=== PATIENT | male | born 1960 | race Two or more races ===

== ENCOUNTER 2025-02-25 10:44 | Inpatient (IN) | payer MEDICARE, MEDICAID ==
[~2025-02-25] VITALS: Ht 162.6 cm; Wt 81.3 kg
--- NOTE | 2025-02-25 11:14 | ED.PDOC ---
GI ASSESSMENT HPI Comments 64 y/o M, presents to the ED with a chief complaint of diarrhea. Patient states, he has been experiencing symptoms of diarrhea, nausea, vomiting, and headaches x2-3days. Patient denies changes in diet, fatigue, weakness, hematemesis, or hematochezia. No other associated symptoms, modifiers, recent injuries or sick contacts are present at this time. Chief Complaint: Diarrhea Time Seen by MD: 11:15 Reviewed Notes: Nurses Notes, Medications, Allergies Information Source: Patient Mode of Arrival: Wheelchair Timing: Days Duration: Since onset Prehospital treatment: None Vomitus: Watery Stool: Watery Severity: Moderate Recent: None Recent Hx of: None Pain Location: None Modifying Factors: Nothing Associated sign and symptoms: Nausea, Vomiting, Diarrhea, Fever Past Medical History PAST MEDICAL HISTORY: Denies Surgical History: Denies all surgeries Family History Family History: Reviewed,noncontributory to illness Social History Smoker: Non-Smoker Alcohol: Denies ETOH Use Drugs: Denies Drug Use Lives In: Home Constitutional: reports: fever; denies: chills, diaphoresis, fatigue, malaise, sweats, weakness, others EENTM: denies: blurred vision, double vision, ear bleeding, ear discharge, ear drainage, ear pain, ear ringing, eye pain, eye redness, hearing loss, mouth pain, mouth swelling, nasal discharge, nose bleeding, nose congestion, nose pain, photophobia, tearing, throat pain, throat swelling, voice changes, others Respiratory: denies: cough, hemoptysis, orthopnea, SOB at rest, shortness of breath, SOB with excertion, stridor, wheezing, others Cardiovascular: denies: chest pain, dizzy spells, diaphoresis, Dyspnea on exertion, edema, irregular heart beat, left arm pain, lightheadedness, palpitations, PND, syncope, others Gastrointestinal: reports: diarrhea, nausea, vomiting; denies: abdomen distended, abdominal pain, blood streaked bowels, constipated, dysphagia, difficulty swallowing, hematemesis, melena, poor appetite, poor fluid intake, rectal bleeding, rectal pain, others Genitourinary: denies: burning, dysuria, flank pain, frequency, hematuria, incontinence, penile discharge, penile sore, pain, testicle pain, testicle swelling, urgency, others Neurological: reports: headache; denies: dizziness, fainting, left sided numbness, left sided weakness, numbness, paresthesia, pre-existing deficit, right sided numbness, right sided weakness, seizure, speech problems, tingling, tremors, weakness, others Musculoskeletal: denies: back pain, gout, joint pain, joint swelling, muscle pain, muscle stiffness, neck pain, others Integumetry: denies: bruises, change in color, change in hair/nails, dryness, laceration, lesions, lumps, rash, wounds, others Allergic/Immunocompromised: denies: Difficulty Healing, Frequent Infections, Hives, Itching, others Hematologic/Lymphatic: denies: anemia, blood clots, easy bleeding, easy bruising, swollen glands, others Endocrine: denies: excessive hunger, excessive sweating, excessive thirst, excessive urination, flushing, intolerance to cold, intolerance to heat, unexplained weight gain, unexplained weight loss, others Psychiatric: denies: anxiety, bipolar disorder, depression, hopeless, panic disorder, schizophrenia, sleepless, suicidal, others All Other Systems: Reviewed and Negative Physical Exam General Appearance: Moderate Distress HEENT: Normal ENT Inspection, Pharynx Normal, TMs Normal Neck: Full Range of Motion, Non-Tender, Normal, Normal Inspection Respiratory: Chest Non-Tender, Lungs Clear, No Accessory Muscle Use, No Resp iratory Distress, Normal Breath Sounds Cardiovascular: No Edema, No JVD, No Murmur, No Gallop, Normal Peripheral Pulses, Regular Rate/Rhythm Breast Exam: Deferred Gastrointestinal: No Organomegaly, Non Tender, No Pulsatile Mass, Normal Bowel Sounds, Soft Genitalia: Deferred Pelvic: Deferred Rectal: Deferred Extremities: No calf tenderness, Normal capillary refill, Normal inspection, Normal range of motion, Non-tender, No pedal edema Musculoskeletal : Apperance: Normal Neurologic: Alert, software application tester II-XII nml as Tested, No Motor Deficits, Normal Affect, Normal Mood, No Sensory Deficits Cerebellar Function: Normal Reflexes: NOT DONE Skin: Dry, Normal Color, Warm Peripheral Pulses: 3+ Radial (R), 3+ Radial (L) Lymphatic: No Adenopathy Was a procedure done? Was a procedure done?: No GI differential Dx Differential Diagnosis: Constipation, Diverticular disease, Esophagitis, Gastritis/PUD, Gastroenteritis, Electrolyte Imbalance, Food Poisoning, Bacterial, Viral X-Ray, Labs, Meds, VS Vital Signs Date Time Temp Pulse Resp B/P (MAP) Pulse Ox O2 Delivery O2 Flow Rate FiO2 02/25/25 13:09 98.5 88 16 127/64 (85) 100 98.5 02/25/25 10:46 99.0 98 16 116/60 96 99.0 Lab Test 02/25/25 13:32 02/25/25 12:03 Range/Units SARS-CoV-2 Antigen (Rapid) Negative NEGATIVE White Blood Count 2.0 L 4.4-10.8 10^3/uL Red Blood Count 4.44 L 4.5-5.90 10^6/uL Hemoglobin 15.5 13.5-17.5 g/dL Hematocrit 45.1 41.0-53.0 % Mean Corpuscular Volume 101.6 H 80.0-100.0 fL Mean Corpuscular Hemoglobin 35.0 H 28.0-32.0 pg Mean Corpuscular Hemoglobin Concent 34.4 32.0-36.0 g/dL Red Cell Distribution Width 15.1 H 11.8-14.3 % Platelet Count 149 140-450 10^3/uL Mean Platelet Volume 8.1 6.9-10.8 fL Neutrophils (%) (Auto) 81.1 H 37.0-80.0 % Lymphocytes (%) (Auto) 9.0 L 10.0-50.0 % Monocytes (%) (Auto) 9.8 0.0-12.0 % Eosinophils (%) (Auto) 0.0 0.0-7.0 % Basophils (%) (Auto) 0.1 0.0-2.0 % Neutrophils # (Auto) 1.6 1.6-8.6 10 ^3/uL Lymphocytes # (Auto) 0.2 L 0.4-5.4 10 ^3/uL Monocytes # (Auto) 0.2 0-1.3 10 ^3/uL Eosinophils # (Auto) 0 0-0.8 10 ^3/uL Basophils # (Auto) 0 0-0.2 10 ^3/uL Nucleated Red Blood Cells 0.4 % Sodium Level 140 136-145 mmol/L Potassium Level 3.9 3.5-5.1 mmol/L Chloride Level 104 98-107 mmol/L Carbon Dioxide Level 24 20-31 mmol/L Anion Gap 12 5-15 Blood Urea Nitrogen 19 9-23 mg/dL Creatinine 1.15 0.700-1.30 mg/dL Glomerular Filtration Rate Calc 71 >90 mL/min BUN/Creatinine Ratio 16.5 10.0-20.0 Serum Glucose 142 H 74-106 mg/dL Calcium Level 9.0 8.7-10.4 mg/dL Troponin I High Sensitivity 5 </=54 ng/L Current Medications Medications (Trade) Dose Ordered Sig/Kaylah Route Start Time Stop Time Status Last Admin Sodium Chloride 1,000 ml @ 1,000 mls/hr Q1H ONCE IV 02/25/25 12:00 02/25/25 12:59 DC 02/25/25 12:20 Patient alert. Generalized weakness. He has been having nausea vomiting. Vitals stable. Unknown his past medical history. Being followed at [facility]. Establish intravenous access. Was given fluids. Continue to monitoring. [place] [address] Ph: [phone] DIAGNOSTIC IMAGING Diagnostic Imaging Report : [id number] Signed PATIENT: INDER PIZARRO RACCT: [id number] UNIT: [id number] : 1960 LOC: ER ROOM / BED: / AGE / SEX: 64 / M ADM STATUS: REG ER SERVICE 47 ORDERING PHYSICIAN: IKER HU MD PROCEDURE(s): CXRP - CHEST PORTABLE REASON: sob ORDER NUMBER(s): [id number], ACCESSION NUMBER(s): [id number] AP portable chest CLINICAL INDICATION: sob FINDINGS: Heart size is normal. Aorta slightly tortuous. No infiltrates or effusions. No bony thoracic abnormalities. IMPRESSION: 1. No acute cardiopulmonary pathology ATED BY: TOMMY DHALIWAL MD DICTATED DATE/TIME: 02/25/251215 SIGNED BY: TOMMY DHALIWAL MD SIGNED DATE/TIME: 02/25/251215 CC: Time of 1ST Reevaluation: 11:45 Reevaluation 1ST: Unchanged Patient Education/Counseling: Diagnosis, Treatment Family Education/Counseling: No Family Present SEPSIS Sepsis Screen Date sepsis recognized/suspect: Feb 25, 2025 Time Sepsis recognized/suspect: 1046 Recent Procedure: No On Antibiotic Therapy: No Respiratory Rate >20: No Heart Rate >90: Yes Temp<36 C (96.8 F) or >38.3 C: No SBP <90 or MAP <65 mmHG: No New Acute Mental Status Change: No Is the patient on CPAP, BIPAP,: No Physician Orders Chest Portable (02/25/25 11:48) Urinalysis (02/25/25 11:48) Vital Signs Date Time Temp Pulse Resp B/P (MAP) Pulse Ox O2 Delivery O2 Flow Rate FiO2 02/25/25 13:09 98.5 88 16 127/64 (85) 100 98.5 02/25/25 10:46 99.0 98 16 116/60 96 99.0 Laboratory Tests Test 02/25/25 12:03 White Blood Count 2.0 10^3/uL (4.4-10.8) L Medications Medications Dose Ordered Sig/Kaylah Route Start Time Stop Time Status Last Admin Dose Admin Sodium Chloride 1,000 ml @ 1,000 mls/hr Q1H ONCE IV 02/25/25 12:00 02/25/25 12:59 DC 02/25/25 12:20 Departure 1 Departure Time of Disposition: 12:24 Impression: Primary Impression: Gastroenteritis Disposition: ADMITTED INPATIENT Admit to: Med Surg Condition: Guarded Critical Care Note Critical Care Time?: No Stability Stability form required: No Heart Score Heart Score: Heart Score Response (Comments) Value History N/A 0 EKG N/A 0 Age N/A 0 Risk Factors N/A 0 Troponin N/A 0 Total 0 I personally scribed for IKER HU MD ([email or web address]) on 02/25/25 at 11:14. Electronically submitted by Merlyn Carbajal ([email or web address]). I personally scribed for IKER HU MD ([email or web address]) on 02/25/25 at 13:34. Electronically submitted by Merlyn Carbajal ([email or web address]). IKER HU MD Feb 25, 2025 11:14
--- NOTE | 2025-02-25 12:18 | DVH ---
AP portable chest CLINICAL INDICATION: sob FINDINGS: Heart size is normal. Aorta slightly tortuous. No infiltrates or effusions. No bony thoraci c abnormalities. IMPRESSION: 1. No acute cardiopulmonary pathology
[2025-02-25] MEDS: SODIUM CHLORIDE 0.9% 1,000 ML IV ONE ×3 (12:20→23:35)
[2025-02-25 12:24] LABS: Hematocrit 45.1 % (41.0-53.0); Hemoglobin 15.5 g/dL (13.5-17.5); Mean Corpuscular Hemoglobin 35.0 pg (28.0-32.0); Mean Corpuscular Volume 101.6 fL (80.0-100.0); Nucleated Red Blood Cells % 0.4 %
[2025-02-25 12:35] LABS: Chloride 104 mmol/L (98-107); Potassium 3.9 mmol/L (3.5-5.1); Sodium 140 mmol/L (136-145)
[2025-02-25 12:36] LABS: Anion Gap 12 (5-15); Carbon Dioxide 24 mmol/L (20-31)
[2025-02-25 12:37] LABS: Calcium 9.0 mg/dL (8.7-10.4)
[2025-02-25 12:42] LABS: BUN/Creatinine Ratio 16.5 (10.0-20.0); Blood Urea Nitrogen 19 mg/dL (9-23); Glucose 142 mg/dL (74-106)
[2025-02-25 14:09] LABS: COVID19 ANTIGEN SOFIA FIA NEGATIVE (NEGATIVE)
[2025-02-25 17:18] LABS: Urine Amorphous Crystal MOD /hpf (None Seen); Urine Protein, UAD 1+ (Negative)
--- NOTE | 2025-02-25 17:19 | DVH ---
EXAM: CT CT AB PEL WO CON-NO ORAL OR IV INDICATION: colitis TECHNIQUE: Volumetric multidetector CT images of the abdomen and pelvis were obtained without contras t. All CT scans at this facility use dose modulation, iterative reconstruction, and/or weight based d osing when appropriate to reduce radiation dose to as low as reasonably achievable. COMPARISON: None FINDINGS: [LOWER CHEST]: The partially visualized lung bases are clear without a pleural effusion. The cardiac size is normal without pericardial effusion. [LIVER]: Normal hepatic size without suspicious focal lesion. [GALLBLADDER AND BILIARY TREE]: No cholelithiasis. [SPLEEN]: Unremarkable. [PANCREAS]: Unremarkable. [ADRENAL GLANDS]: Unremarkable [KIDNEYS]: No hydronephrosis. No nephroureterolithiasis. [BLADDER]: Unremarkable for the degree distention. [REPRODUCTIVE ORGANS]: Unremarkable. [BOWEL/MESENTERY]: Air-fluid level of the stomach. Fluid throughout the colon. Correlate for loose s tool. Slight fluid distention of multiple small bowel loops. [ASCITES]: Absent [LYMPHADENOPATHY]: No pathologically enlarged lymph nodes by CT size criteria [VASCULATURE]: No aneurysmal dilatation. [ABDOMINAL WALL]: Trace fat containing right inguinal hernia [MUSCULOSKELETAL]: No acute fracture or aggressive focal osseous lesion. IMPRESSION: 1. Fluid throughout the colon and small bowel. 2. Correlate for diarrhea sequelae of enteric colitis. 3. No CT evidence of bowel obstruction.
[2025-02-25 18:41] LABS: Lactic Acid w/Reflex 2.7 mmol/L (0.4-2.0)
[2025-02-25 22:08] LABS: Alanine Aminotransferase 21.0 U/L (7-40); Albumin 4.2 g/dL (3.2-4.8); Alkaline Phosphatase 59.0 U/L (46-116); Bilirubin, Direct 0.2 mg/dL (<0.3); Total Protein 6.9 g/dL (5.7-8.2)
[2025-02-25 22:09] LABS: Bilirubin, Total 0.5 mg/dL (0.2-1.0)
[2025-02-25 23:14] LABS: Lactic Acid w/Reflex 2.1 mmol/L (0.4-2.0)
[2025-02-25 23:30] VITALS: O2SAT 98
--- NOTE | 2025-02-25 23:57 | DVHHPRES ---
History of Present Illness Resident Creating Document: MALACHI MOTA RESIDENT History of Present Illness History of Present Illness (HPI): Todd Day is a 64-year-old male with a known medical history of hypertension and hepatic hemangioma who presented with complaints of persistent nausea, repeated episodes of vomiting, diarrhea, headache, and generalized weakness that have persisted over the past three days. He reports experiencing . These symptoms are accompanied by fever and shortness of breath. He states he feels too fatigued to even get out of bed. Notably, he began experiencing dizziness yesterday, and there is now evidence of confusion. One week prior to presentation, Mr. Day underwent a colonoscopy in [place]. He denies any blood in his stool or vomit. Past Medical History (PMH): hypertension and hepatic hemangioma Past Surgical History (PSH): Denies past surgical history Family history (FH): Denies any relevant family history EtOH: Denies alcohol use Smoking /Vaping: Patient denies smoking Recreational Drugs: Denies recreational drug use Residence: Lives with daughter Home Medications: Bisoprolol, candesartan Allergies: No known allergies PCP: No PCP. Advised to follow with [facility] as outpatient after sifting operator relevant to admission: Nonrelevant Review of Systems Review of Systems General: Complains of fever, generalized weakness HEENT: Complains of headaches. Cardiovascular: Denies chest pain, palpitations, dyspnea on exertion, orthopnea, or claudication. Respiratory: Complains of shortness of breath Gastrointestinal: Complains of diarrhea, nausea and vomiting Genitourinary: No dysuria, hematuria, discharge, frequency, urgency, nocturia, incontinence, and urinary retention. Endocrine: No heat or cold intolerance, polydipsia, polyuria, and polyphagia. Neurological: No dizziness, extremity weakness and numbness, tremors, gait disturbance, seizures, and memory impairment. Psychiatric: Denies depression, anxiety,or insomnia. Musculoskeletal: Denies neck pain, stiffness and swelling, back pain, muscle weakness, joint pain, stiffness, swelling, or limited range of motion. Skin: No rashes, itching, skin lesion, changes in hair, nail, skin texture and breast. Hematologic/Lymphatic: Denies easy bruising, bleeding tendencies, or lymph node enlargement. Allergies: Coded Allergies: NO KNOWN ALLERGIES (Unverified , 02/26/25) Medications Current Medications Medications Dose Ordered Sig/Kaylah Route Start Time Stop Time Status Last Admin Dose Admin Piperacillin Sod/ Tazobactam Sod 100 ml @ 25 mls/hr Q8HR IV 02/25/25 22:00 UNV Exam Vital Signs Vital Signs Date Time Temp Pulse Resp B/P (MAP) Pulse Ox O2 Delivery O2 Flow Rate FiO2 02/25/25 23:30 98 Room Air* 0 21 02/25/25 23:28 99.0 81 16 123/70 (87) 99.0 Exam General Appearance: Alert, Oriented X3, Cooperative, No acute distress HEENT: Atraumatic, PERRLA, EOMI, Mucous membrane moist/pink Respiratory: Clear to auscultation, Normal air movement Cardiovascular: Regular rate, Normal S1, Normal S2, No murmurs, no chest wall tenderness Abdominal: Normal bowel sounds, Soft, No tenderness, No hepatospenomegaly, No masses Extremities: No clubbing, No cyanosis, No edema, Normal pulses, No tenderness/swelling Skin: No rashes, No breakdown, No significant lesion Neuro: Normal gait, Normal speech, Strength at 5/5 X4 ext, Normal tone, Sensation intact, Cranial nerves 3-12 NL, Reflexes 2+ Psych/Mental Status: Mental status NL, Mood NL Labs/Xrays Labs Test 02/25/25 22:40 02/25/25 19:14 02/25/25 16:48 02/25/25 13:32 Range/Units Lactic Acid Level 2.1 *H 0.4-2.0 mmol/L Total Bilirubin 0.5 0.2-1.0 mg/dL Direct Bilirubin 0.2 <0.3 mg/dL Aspartate Amino Transferase (AST) 16 13-40 U/L Alanine Aminotransferase (ALT) 21 7-40 U/L Alkaline Phosphatase 59 46-116 U/L Total Protein 6.9 5.7-8.2 g/dL Albumin 4.2 3.2-4.8 g/dL Urine Color Light-orange Yellow Urine Clarity Ex.turbid Clear Urine pH 5.5 5.0-9.0 Urine Specific Girard 1.029 1.001-1.035 Urine Protein 1+ H Negative Urine Ketones 1+ H Negative Urine Blood Trace H Negative /uL Urine Nitrite Negative Negative Urine Bilirubin Negative Negative Urine Urobilinogen Normal Negative mg/dL Urine Leukocyte Esterase Negative Negative /uL Urine RBC 6 0 - 3 /hpf Urine Microscopic WBC 0-3 /HPF Urine Squamous Epithelial Cells None seen <5 /hpf Urine Amorphous Crystals Mod None Seen /hpf Urine Bacteria None seen None Seen /hpf Urine Glucose Trace Normal mg/dL SARS-CoV-2 Antigen (Rapid) Negative NEGATIVE Test 02/25/25 12:03 Range/Units White Blood Count 2.0 L 4.4-10.8 10^3/uL Red Blood Count 4.44 L 4.5-5.90 10^6/uL Hemoglobin 15.5 13.5-17.5 g/dL Hematocrit 45.1 41.0-53.0 % Mean Corpuscular Volume 101.6 H 80.0-100.0 fL Mean Corpuscular Hemoglobin 35.0 H 28.0-32.0 pg Mean Corpuscular Hemoglobin Concent 34.4 32.0-36.0 g/dL Red Cell Distribution Width 15.1 H 11.8-14.3 % Platelet Count 149 140-450 10^3/uL Mean Platelet Volume 8.1 6.9-10.8 fL Neutrophils (%) (Auto) 81.1 H 37.0-80.0 % Lymphocytes (%) (Auto) 9.0 L 10.0-50.0 % Monocytes (%) (Auto) 9.8 0.0-12.0 % Eosinophils (%) (Auto) 0.0 0.0-7.0 % Basophils (%) (Auto) 0.1 0.0-2.0 % Neutrophils # (Auto) 1.6 1.6-8.6 10 ^3/uL Lymphocytes # (Auto) 0.2 L 0.4-5.4 10 ^3/uL Monocytes # (Auto) 0.2 0-1.3 10 ^3/uL Eosinophils # (Auto) 0 0-0.8 10 ^3/uL Basophils # (Auto) 0 0-0.2 10 ^3/uL Nucleated Red Blood Cells 0.4 % Sodium Level 140 136-145 mmol/L Potassium Level 3.9 3.5-5.1 mmol/L Chloride Level 104 98-107 mmol/L Carbon Dioxide Level 24 20-31 mmol/L Anion Gap 12 5-15 Blood Urea Nitrogen 19 9-23 mg/dL Creatinine 1.15 0.700-1.30 mg/dL Glomerular Filtration Rate Calc 71 >90 mL/min BUN/Creatinine Ratio 16.5 10.0-20.0 Serum Glucose 142 H 74-106 mg/dL Calcium Level 9.0 8.7-10.4 mg/dL Troponin I High Sensitivity 5 </=54 ng/L SEPSIS Sepsis Screen Date sepsis recognized/suspect: Feb 25, 2025 Time Sepsis recognized/suspect: 1045 Recent Procedure: No On Antibiotic Therapy: No Respiratory Rate >20: No Heart Rate >90: Yes Temp<36 C (96.8 F) or >38.3 C: No SBP <90 or MAP <65 mmHG: No New Acute Mental Status Change: No Is the patient on CPAP, BIPAP,: No Physician Orders Ct Ab Pel Wo Con-No Oral Or Iv (02/25/25 16:16) Blood Culture (02/25/25 16:16) Admit (02/25/25 21:39) Allergies (02/25/25 21:39) Code Status (02/25/25 21:39) Fall Risk Precautions In Place QSHIFT (02/25/25 21:39) Complete Blood Count (02/26/25 04:00) Comprehensive Metabolic Panel (02/26/25 04:00) Condition: Serious (02/25/25 21:39) Stool Bacterial Culture (02/25/25 21:42) Mrsa Screen (02/25/25 21:42) Stool Wbc (02/25/25 21:42) Stool Occult Blood (02/25/25 21:42) Npo Except For Medications (02/25/25 21:42) Piperacillin-Tazo 4.5gm (Zosyn 4.5gm/100 (02/25/25 21:45) Piperacillin-Tazob 3.375gm (Zosyn 3.375g (02/25/25 22:00) Clostridium Difficile Toxin (02/25/25 21:42) Communication Order (02/25/25 23:18) Vital Signs Date Time Temp Pulse Resp B/P (MAP) Pulse Ox O2 Delivery O2 Flow Rate FiO2 02/25/25 23:30 98 Room Air* 0 21 02/25/25 23:28 99.0 81 16 123/70 (87) 94 99.0 02/25/25 20:37 99.5 81 16 120/76 (91) 96 99.5 02/25/25 18:20 101.2 87 16 128/67 (87) 96 101.2 02/25/25 16:01 103.1 97 16 126/71 (89) 96 103.1 Laboratory Tests Test 02/25/25 12:03 02/25/25 17:17 02/25/25 19:14 02/25/25 22:40 White Blood Count 2.0 10^3/uL (4.4-10.8) L Lactic Acid Level 2.7 mmol/L (0.4-2.0) *H 2.2 mmol/L (0.4-2.0) *H 2.1 mmol/L (0.4-2.0) *H Medications Medications Dose Ordered Sig/Kaylah Route Start Time Stop Time Status Last Admin Dose Admin Ceftriaxone Sodium 50 ml @ 100 mls/hr ONCE ONCE IV 02/25/25 16:00 02/25/25 16:29 DC 02/25/25 15:55 100 MLS/HR Metronidazole 100 ml @ 100 mls/hr ONCE ONCE IV 02/25/25 16:30 02/25/25 17:29 DC 02/25/25 16:29 100 MLS/HR Sodium Chloride 1,000 ml @ 1,000 mls/hr Q1H ONCE IV 02/25/25 12:00 02/25/25 12:59 DC 02/25/25 12:20 1,000 MLS/HR Sodium Chloride 1,000 ml @ 1,000 mls/hr Q1H ONCE IV 02/25/25 15:45 02/25/25 16:44 DC 02/25/25 15:55 1,000 MLS/HR Sodium Chloride 1,000 ml @ 1,000 mls/hr Q1H ONCE IV 02/25/25 16:30 02/25/25 17:29 DC 02/25/25 23:35 1,000 MLS/HR Assessment/Plan Assessment/Plan Assessment and plan # Sepsis due to colitis - IV fluids - IV Zosyn - Follow stool WBC, culture, blood - Follow lactic acid levels - NPO - Follow Clostridium difficile test result # Colitis, likely infectious # history of recent colonoscopy - Identified on CT - IV fluids - IV Zosyn plus vanco # Essential hypertension - Continue bisoprolol and candesartan #History of Hepatic hemangioma - Likely resolved, CT shows Normal hepatic size without suspicious focal lesion. - Follow-up with PCP as outpatient after discharge # Grade 1 obesity - Diet and tolerable exercise PUD prophylaxis: not needed DVT prophylaxis: brisk movement. Barriers to discharge: Medical diagnosis and management in progress. Patient lives with family. Independent for ADL. PCP: None Specialist Relevant To Admission: Nonrelevant Case discussed with Dr. Rangel. Code Status: Full Code. Complex patient care discussion needed. Spend 37 minutes for bedside assessment, case discussion and management. Plan discussed with: Patient, Daughter My Orders Orders - MALACHI MOTA RESIDENT Procedure Category Date Status Time Admit ADMIT 02/25/25 Transmitted 21:39 Allergies YENI 02/25/25 In Process 21:39 Code Status CODE 02/25/25 Transmitted 21:39 Fall Risk Precautions YENI 02/25/[address] 21:39 Complete Blood Count LAB 02/26/25 Verified 04:00 Comprehensive LAB 02/26/25 Verified Metabolic Panel 04:00 Condition: Serious YENI 02/25/25 In Process 21:39 Stool Bacterial LEIDY 02/25/25 Logged Culture 21:42 Mrsa Screen LEIDY 02/25/25 Logged 21:42 Stool Wbc LAB 02/25/25 Logged 21:42 Stool Occult Blood LAB 02/25/25 Logged 21:42 Npo Except For YENI 02/25/25 In Process Medications 21:42 Piperacillin-Tazo PHA 02/25/25 Logged 4.5gm (Zosyn 4.5gm/100 21:45 Piperacillin-Tazob PHA 02/25/25 Logged 3.375gm (Zosyn 3.375g 22:00 Clostridium Difficile LEIDY 02/25/25 Logged Toxin 21:42 Communication Order ORDERS 02/25/25 Transmitted 23:18 Date of Service: Feb 25, 2025 Billing Provider: NAZ RANGEL MD Common Visit Codes: [id number] INP/OBS CARE (HIGH) Secondary Visit Codes: [id number] CARE PLAN 30 MINUTES MALACHI MOTA RESIDENT Feb 25, 2025 23:57 AISSATOU HERR RESIDENT Feb 26, 2025 04:09
[2025-02-26] MEDS: SODIUM CHLORIDE 0.9% 1,000 ML IV ONE (00:30)
[2025-02-26] MEDS ORDERED: VANCOMYCIN PER PHARMACY 0 MG IV SCH (04:15)
[2025-02-26] MEDS: PIPERACILLIN-TAZO 4.5GM 100 ML IV ONE ×2 (05:49→06:27)
[2025-02-26] MEDS: SODIUM CHLORIDE 0.9% 500 ML IV ONE (05:49)
[2025-02-26 06:57] LABS: Hemoglobin 14.3 g/dL (13.5-17.5)
[2025-02-26 06:59] LABS: Hematocrit 41.6 % (41.0-53.0); Mean Corpuscular Hemoglobin 34.6 pg (28.0-32.0); Mean Corpuscular Volume 100.6 fL (80.0-100.0)
[2025-02-26 07:17] LABS: Alanine Aminotransferase 21 U/L (7-40); Albumin 4.1 g/dL (3.2-4.8); Alkaline Phosphatase 54 U/L (46-116); Anion Gap 12 (5-15); BUN/Creatinine Ratio 17.4 (10.0-20.0); Blood Urea Nitrogen 16 mg/dL (9-23); Carbon Dioxide 22 mmol/L (20-31); Sodium 141 mmol/L (136-145); Total Protein 6.7 g/dL (5.7-8.2)
[2025-02-26 07:18] LABS: Bilirubin, Total 0.5 mg/dL (0.2-1.0)
[2025-02-26 07:21] LABS: Calcium 8.4 mg/dL (8.7-10.4); Chloride 107 mmol/L (98-107); Glucose 127 mg/dL (74-106); Potassium 3.1 mmol/L (3.5-5.1)
[2025-02-26] MEDS: VANCOMYCIN 1GM/250ML KIT 250 ML IV SCH ×2 (09:00)
[2025-02-26] MEDS: SODIUM CHLORIDE 0.9% 1,000 ML IV SCH (09:03)
[2025-02-26] MEDS: POTASSIUM CHL 20MEQ/100ML 100 ML IV ONE ×2 (09:07→10:57)
[2025-02-26] MEDS: VANCOMYCIN 1GM/250ML KIT 500 ML IV ONE (09:07)
[2025-02-26 09:45] LABS: Macrocytosis Slight; Total Cells Counted 100.0 (100)
[2025-02-26] MEDS ORDERED: PIPERACILLIN-TAZOB 3.375GM 100 ML IV SCH (14:00)
[2025-02-26] MEDS: ACETAMINOPHEN 325 MG TAB PO PRN (16:46)
[2025-02-26 20:07] VITALS: PULSE 79; RESP 18; O2SAT 98
--- NOTE | 2025-02-26 20:46 | DVHPNRES ---
Progress Note Date Seen: Feb 26, 2025 Resident Creating Document: FRANCISCO ROMANO RESIDENT Medical Necessity Reason Pt with a Central, PICC or Fol: No Subjective Review of Systems Todd Day is a 64-year-old male with a known medical history of hypertension and hepatic hemangioma who presented with complaints of persistent nausea, repeated episodes of vomiting, diarrhea, headache, and generalized weakness that have persisted over the past three days. He reports experiencing . These symptoms are accompanied by fever and shortness of breath. Patient had colonoscopy week ago and came to [facility] 3 days ago. Since came to [facility] she had loose stool associated with abdominal pain. Spoke to daughter (Avani), [facility] for last 2 days. Patient also fever for same duration. Past Medical History (PMH): hypertension and hepatic hemangioma Past Surgical History (PSH): Denies past surgical history Family history (FH): Nothing contributory EtOH: Denies alcohol use Smoking /Vaping: Denies Recreational Drugs: Denies Residence: Lives with daughter Home Medications: Bisoprolol, candesartan Allergies: No known allergies PCP: No PCP. Patient seen and examined at bedside. Currently diarrhea has improved mildly, continue with IV fluids and empiric IV antibiotic. Objective vital signs Vital Sign Date Time Temp Pulse Resp B/P (MAP) Pulse Ox O2 Delivery O2 Flow Rate FiO2 02/26/25 20:07 79 18 98 Room Air* 0 21 02/26/25 20:04 98.9 120/77 (91) 98.9 Total Intake and Output 02/25/25 02/25/25 02/26/25 15:00 23:00 07:00 Intake Total 1300 ml Balance 1300 ml medications Current Medications Medications Dose Ordered Sig/Kaylah Route Start Time Stop Time Status Last Admin Dose Admin Sodium Chloride 1,000 ml @ 100 mls/hr Q10H IV 02/26/25 07:15 02/26/25 09:03 100 MLS/HR Acetaminophen 650 mg Q6HP PRN PO 02/26/25 07:15 02/26/25 16:46 650 MG Ceftriaxone Sodium 50 ml @ 100 mls/hr DAILY@09 IV 02/27/25 09:00 Metronidazole 100 ml @ 100 mls/hr Q8HR IV 02/26/25 14:00 02/26/25 14:28 100 MLS/HR Examination General Appearance: Alert, Oriented X3, Cooperative, No acute distress HEENT: Atraumatic, PERRLA, EOMI, Mucous membrane moist/pink Respiratory: Clear to auscultation, Normal air movement Cardiovascular: Regular rate, Normal S1, Normal S2, No murmurs, no chest wall tenderness Abdominal: Normal bowel sounds, Soft, tenderness on deep palpation, No hepatospenomegaly, No masses Extremities: No clubbing, No cyanosis, No edema, Normal pulses, No tenderness/swelling Skin: No rashes, No breakdown, No significant lesion Neuro: Normal gait, Normal speech, Strength at 5/5 X4 ext, Normal tone, Sensation intact, Cranial nerves 3-12 NL, Reflexes 2+ Psych/Mental Status: Mental status NL, Mood NL laboratory and microbiology Laboratory Tests 02/26/25 06:21 Test 02/26/25 06:21 Range/Units Serum Glucose 127 H 74-106 mg/dL Microbiology Date/Time Source Procedure Growth Status 02/25/25 23:40 Stool Stool Culture - Preliminary Resulted 02/25/25 23:40 Stool Shiga Toxin I & II - Final Resulted 02/25/25 23:40 Stool Clostridium difficile Toxin Assay - Final Resulted 02/25/25 17:17 Blood Blood Culture - Preliminary NO GROWTH AFTER 24 HOURS OF INCUBATION. Resulted Problem List/Assessment/Plan Problem List/Assessment/Plan # Sepsis due to colitis Gastroenteritis likely viral or bacterial Traveler's diarrhea - IV fluids - IV Zosyn switch to empiric antibiotic ceftriaxone and Flagyl - Follow stool WBC, culture, blood -lactic acid level 2.2> 2.1> 2.5> 1.7 - NPO, with advanced side accordingly - Follow Clostridium difficile test result -monitor vital #Neutropenia WBC count 1.5 ANC 1020 Continue empiric antibiotic Isolation precaution CBC # Essential hypertension -home medication: Bisoprolol Current blood pressure soft will resume BP meds accordingly # vitamin-D deficiency vitamin-D level 10.4 vitamin-D 00968 units p.o. Q weekly # pre diabetes hemoglobin A1c 5.8 # hyperthyroidism THS 0.53 monitor total T3 and free T4 # hypokalemia potassium 3.1 supplemented # lactic acidosis lactic acid level 2.2> 2.1> 2.5> 1.7 #History of Hepatic hemangioma - Likely resolved, CT shows Normal hepatic size without suspicious focal lesion. - Follow-up with PCP as outpatient after discharge # history of recent colonoscopy Colonoscopy report normal as per patient family members Microcytic anemia MCV 100.6 B12, folic acid level # Obesity, BMI 30.1 Lifestyle modification Goals of care discussions. More than 21 minute spent with patient Case discussed with Dr. Delatorre Plan discussed with: Patient, Spouse, Daughter, Other My Orders My Orders Orders - FRANCISCO ROMANO RESIDENT Procedure Category Date Status Time Vitamin D, 25-Hydroxy LAB 02/27/25 Verified 04:00 Lipid Panel LAB 02/27/25 Verified 04:00 Ceftriaxone 1gm/50ml PHA 02/27/25 In Process (Rocephin) 09:00 Metronidazole PHA 02/26/25 In Process 500mg/100ml (Flagyl 14:00 Date of Service: Feb 26, 2025 Billing Provider: ROLLY DELATORRE MD Common Visit Codes: [id number] INP/OBS CARE(HIGH) FRANCISCO ROMANO RESIDENT Feb 26, 2025 20:45 GIANCARLO MCCABE RESIDENT Feb 27, 2025 09:06 ROLLY DELATORRE MD Mar 01, 2025 15:43
[2025-02-27] VITALS (9 sets, daily range): BP systolic 129–164; BP diastolic 79–95; PULSE 62–90; RESP 16–18; TEMP 96.2–98.6; O2SAT 94–98
[2025-02-27] MEDS: POTASSIUM CHL 20MEQ/100ML 100 ML IV ONE ×2 (01:15→03:35)
[2025-02-27 10:36] LABS: Anion Gap 11 (5-15); Carbon Dioxide 24 mmol/L (20-31); Sodium 144 mmol/L (136-145)
[2025-02-27 10:42] LABS: BUN/Creatinine Ratio 14.3 (10.0-20.0); Magnesium 2.0 mg/dL (1.6-2.6)
[2025-02-27 10:43] LABS: Blood Urea Nitrogen 34 mg/dL (9-23); Calcium 8.1 mg/dL (8.7-10.4); Chloride 109 mmol/L (98-107); Glucose 111 mg/dL (74-106); Potassium 3.0 mmol/L (3.5-5.1); Triglycerides 193 mg/dL (< 150)
[2025-02-27 10:44] LABS: Cholesterol 113 mg/dL (< 200)
[2025-02-27 10:45] LABS: HDL Cholesterol 24 mg/dL (40-59)
[2025-02-27 10:54] LABS: Hemoglobin 14.2 g/dL (13.5-17.5)
[2025-02-27 11:11] LABS: Hematocrit 40.9 % (41.0-53.0); Mean Corpuscular Hemoglobin 34.4 pg (28.0-32.0); Mean Corpuscular Volume 99.3 fL (80.0-100.0); Nucleated Red Blood Cells % 0.6 %
[2025-02-27] MEDS: SODIUM CHLORIDE 0.9% 500 ML IV ONE (11:30)
[2025-02-27] MEDS: CYANOCOBALAMIN (B-12) 1000 MCG/1 ML VIAL IM ONE (15:36)
[2025-02-27] MEDS: ERGOCALCIFEROL 50,000 UNIT(1.25MG) CAP PO SCH (15:36)
[2025-02-27] MEDS: POTASSIUM CHL 20 Meq TABLET PO ONE (15:36)
--- NOTE | 2025-02-27 17:39 | DVHPNRES ---
Progress Note Date Seen: Feb 27, 2025 Resident Creating Document: FRANCISCO ROMANO RESIDENT Medical Necessity Reason Pt with a Central, PICC or Fol: No Subjective Review of Systems Todd Day is a 64-year-old male with a known medical history of hypertension and hepatic hemangioma who presented with complaints of persistent nausea, repeated episodes of vomiting, diarrhea, headache, and generalized weakness that have persisted over the past three days. These symptoms are accompanied by fever and shortness of breath. Patient had colonoscopy week ago and came to [facility] 3 days ago. Since came to [facility] she had loose stool associated with abdominal pain. Spoke to daughter (Avani), his father went to restroom every 1-2 hour for last 2 days. Patient also fever for same duration. Past Medical History (PMH): hypertension and hepatic hemangioma Past Surgical History (PSH): Denies past surgical history Family history (FH): Nothing contributory EtOH: Denies alcohol use Smoking /Vaping: Denies Recreational Drugs: Denies Residence: Lives with daughter Home Medications: Bisoprolol, candesartan Allergies: No known allergies PCP: No PCP. Seen and evaluated in bedside today. Patient abdominal pain is improving and decreased bowel movement frequency. Spoke to daughter Avani, discussed current management plan and purposely exit vertebral discussed. Patient denies any fever, dysuria, cough, chest pain. Objective vital signs Vital Sign Date Time Temp Pulse Resp B/P (MAP) Pulse Ox O2 Delivery O2 Flow Rate FiO2 02/27/25 17:00 98.2 79 17 147/87 (107) 97 98.2 02/27/25 08:00 Room Air* 0 21 Total Intake and Output 02/26/25 02/26/25 02/27/25 15:00 23:00 07:00 Intake Total 500 ml 500 ml 150 ml Balance 500 ml 500 ml 150 ml medications Current Medications Medications Dose Ordered Sig/Kaylah Route Start Time Stop Time Status Last Admin Dose Admin Acetaminophen 650 mg Q6HP PRN PO 02/26/25 07:15 02/26/25 16:46 650 MG Ceftriaxone Sodium 50 ml @ 100 mls/hr DAILY@09 IV 02/27/25 09:00 02/27/25 11:01 100 MLS/HR Metronidazole 100 ml @ 100 mls/hr Q8HR IV 02/26/25 14:00 02/27/25 15:35 100 MLS/HR Ergocalciferol 50,000 unit Q7D PO 02/27/25 14:15 02/27/25 15:36 50,000 UNIT Metoprolol Tartrate 50 mg BID PO 02/27/25 22:00 UNV Examination General Appearance: Alert, Oriented X3, Cooperative, No acute distress HEENT: Atraumatic, PERRLA, EOMI, Mucous membrane moist/pink Respiratory: Clear to auscultation, Normal air movement Cardiovascular: Regular rate, Normal S1, Normal S2, No murmurs, no chest wall tenderness Abdominal: Normal bowel sounds, Soft, tenderness on deep palpation Extremities: No clubbing, No cyanosis, No edema, Normal pulses, No tenderness/swelling Skin: No rashes, No breakdown, No significant lesion Neuro: Normal gait, Normal speech, Strength at 5/5 X4 ext, Normal tone, Sensation intact, Cranial nerves 3-12 NL, Reflexes 2+ Psych/Mental Status: Mental status NL, Mood NL laboratory and microbiology Laboratory Tests 02/27/25 10:09 Test 02/27/25 10:09 Range/Units Serum Glucose 111 H 74-106 mg/dL Microbiology Date/Time Source Procedure Growth Status 02/27/25 02:00 Nose MRSA Screen - Final Complete 02/25/25 23:40 Stool Stool Culture - Preliminary Resulted 02/25/25 23:40 Stool Shiga Toxin I & II - Final Resulted 02/25/25 23:40 Stool Clostridium difficile Toxin Assay - Final Resulted 02/25/25 17:17 Blood Blood Culture - Preliminary NO GROWTH AFTER 48 HOURS OF INCUBATION. Resulted Problem List/Assessment/Plan Problem List/Assessment/Plan #Sepsis due to colitis #Gastroenteritis likely viral or bacterial #Traveler's diarrhea - IV fluids - IV Zosyn switch to empiric antibiotic ceftriaxone and Flagyl - Follow stool WBC, culture, blood -lactic acid level 2.2> 2.1> 2.5> 1.7 - clear liquid diet, advanced accordingly -blood culture x2 no growth - Clostridium difficile/Campylobacter-negative -monitor vital #Neutropenia WBC count 1.5>2.0 Continue empiric antibiotic Isolation precaution CBC WILMER due to dehydration Creatinine 2.37, GFR 32 IVF Encouraged oral hydration BNP Avoid nephrotoxic drugs # Macrocytic anemia due to vitamin B12 deficiency Vitamin B12 level 71 Vitamin B12 injection given 02/27/2025 # Essential hypertension -home medication: Bisoprolol Current blood pressure soft Metoprolol 50 mg bid # vitamin-D deficiency vitamin-D level 10.4 vitamin-D 07391 units p.o. Q weekly # pre-diabetes hemoglobin A1c 5.8 # hyperthyroidism THS 0.53 monitor total T3 and free T4 # hypokalemia potassium 3.1>3.0 supplemented # lactic acidosis lactic acid level 2.2> 2.1> 2.5> 1.7 #History of Hepatic hemangioma - Likely resolved, CT shows Normal hepatic size without suspicious focal lesion. - Follow-up with PCP as outpatient after discharge # history of recent colonoscopy Colonoscopy report normal as per patient family members #Microcytic anemia MCV 100.6 B12, folic acid level # Obesity, BMI 30.1 Lifestyle modification Goals of care discussions. More than 19 minute spent with patient. Case discussed with Dr. Delatorre Plan discussed with: Patient, Daughter, Other (Nurse) My Orders My Orders Orders - FRANCISCO ROMANO RESIDENT Procedure Category Date Status Time Clear Liq Diet DIET 02/27/25 Transmitted Lunch Ergocalciferol PHA 02/27/25 In Process (Vitamin D 50,000 14:15 Metoprolol Tartrate PHA 02/27/25 Logged Tablet (Lopressor Ta 17:30 Metoprolol Tartrate PHA 02/27/25 Logged Tablet (Lopressor Ta 22:00 Date of Service: Feb 27, 2025 Billing Provider: ROLLY DELATORRE MD Common Visit Codes: [id number] INP/OBS CARE(HIGH) FRANCISCO ROMANO RESIDENT Feb 27, 2025 17:39 GIANCARLO MCCABE Mar 06, 2025 10:29 ROLLY DELATORRE MD Mar 06, 2025 16:23
[2025-02-27] MEDS: METOPROLOL TARTRATE 50 MG TAB PO ONE (18:29)
[2025-02-27 18:45] LABS: Sodium 141 mmol/L (136-145)
[2025-02-27 18:46] LABS: Anion Gap 13 (5-15); Carbon Dioxide 21 mmol/L (20-31)
[2025-02-27 18:51] LABS: BUN/Creatinine Ratio 10.8 (10.0-20.0)
[2025-02-27 19:25] LABS: Blood Urea Nitrogen 30 mg/dL (9-23); Calcium 8.2 mg/dL (8.7-10.4); Chloride 107 mmol/L (98-107); Glucose 120 mg/dL (74-106); Potassium 3.1 mmol/L (3.5-5.1)
[2025-02-27] MEDS: METOPROLOL TARTRATE 50 MG TAB PO SCH (21:53)
[2025-02-27] MEDS: SODIUM CHLORIDE 0.9% 1,000 ML IV SCH (21:54)
[2025-02-28] VITALS (8 sets, daily range): BP systolic 123–144; BP diastolic 74–91; PULSE 56–86; RESP 16–18; TEMP 97.7–98.7; O2SAT 96–98
[2025-02-28 06:39] LABS: Anion Gap 12 (5-15); Carbon Dioxide 20 mmol/L (20-31); Sodium 140 mmol/L (136-145)
[2025-02-28 06:44] LABS: Hematocrit 36.9 % (41.0-53.0); Hemoglobin 13.1 g/dL (13.5-17.5); Mean Corpuscular Volume 99.0 fL (80.0-100.0)
[2025-02-28 06:46] LABS: BUN/Creatinine Ratio 10.9 (10.0-20.0); Magnesium 2.2 mg/dL (1.6-2.6)
[2025-02-28 06:48] LABS: Mean Corpuscular Hemoglobin 35.2 pg (28.0-32.0); Nucleated Red Blood Cells % 0.5 %
[2025-02-28 06:51] LABS: Blood Urea Nitrogen 33 mg/dL (9-23); Calcium 8.1 mg/dL (8.7-10.4); Chloride 108 mmol/L (98-107); Glucose 106 mg/dL (74-106); Potassium 3.0 mmol/L (3.5-5.1)
[2025-02-28] MEDS: SODIUM CHLORIDE 0.9% 500 ML IV ONE (10:24)
[2025-02-28] MEDS: POTASSIUM CHL 20 Meq TABLET PO ONE (10:24)
[2025-02-28] MEDS: NYSTATIN (MOUTH-THROAT) 500,000 UNITS/5 ML SUSP MT ONE (10:25)
[2025-02-28] MEDS: NYSTATIN (MOUTH-THROAT) 500,000 UNITS/5 ML SUSP MT SCH (12:27)
[2025-02-28 16:46] LABS: Chloride 112 mmol/L (98-107); Potassium 3.6 mmol/L (3.5-5.1); Sodium 141 mmol/L (136-145)
[2025-02-28 16:47] LABS: Anion Gap 10 (5-15)
[2025-02-28 16:49] LABS: Calcium 7.6 mg/dL (8.7-10.4); Carbon Dioxide 19 mmol/L (20-31)
[2025-02-28 16:52] LABS: BUN/Creatinine Ratio 13.6 (10.0-20.0)
[2025-02-28 16:54] LABS: Blood Urea Nitrogen 42 mg/dL (9-23); Glucose 112 mg/dL (74-106)
--- NOTE | 2025-02-28 17:11 | DVHPNRES ---
Progress Note Date Seen: Feb 28, 2025 Resident Creating Document: FRANCISCO RMOANO RESIDENT Medical Necessity Reason Pt with a Central, PICC or Fol: No Subjective Review of Systems Todd Day is a 64-year-old male with a known medical history of hypertension and hepatic hemangioma who presented with complaints of persistent nausea, repeated episodes of vomiting, diarrhea, headache, and generalized weakness that have persisted over the past three days. He reports experiencing . These symptoms are accompanied by fever and shortness of breath. Patient had colonoscopy week ago and came to [facility] 3 days ago. Since came to [facility] she had loose stool associated with abdominal pain. Spoke to daughter (Avani), his father went to restroom every 1-2 hour for last 2 days. Patient also fever for same duration. Past Medical History (PMH): hypertension and hepatic hemangioma Past Surgical History (PSH): Denies past surgical history Family history (FH): Nothing contributory EtOH: Denies alcohol use Smoking /Vaping: Denies Recreational Drugs: Denies Residence: Lives with daughter Home Medications: Bisoprolol, candesartan Allergies: No known allergies PCP: No PCP. Patient seen and evaluated bedside. Patient denies any abdominal pain or fever today. Patient diarrhea significantly improved since last night. Lab shows creatinine trending up, IVF and oral fluid encouraged. No acute event overnight Objective vital signs Vital Sign Date Time Temp Pulse Resp B/P (MAP) Pulse Ox O2 Delivery O2 Flow Rate FiO2 02/28/25 16:49 98.7 62 16 144/84 (104) 98 98.7 02/28/25 08:00 Room Air* 0 21 Total Intake and Output 02/27/25 02/27/25 02/28/25 15:00 23:00 07:00 Intake Total 900 ml 1000 ml Balance 900 ml 1000 ml medications Current Medications Medications Dose Ordered Sig/Kaylah Route Start Time Stop Time Status Last Admin Dose Admin Acetaminophen 650 mg Q6HP PRN PO 02/26/25 07:15 02/26/25 16:46 650 MG Ceftriaxone Sodium 50 ml @ 100 mls/hr DAILY@09 IV 02/27/25 09:00 02/28/25 09:33 100 MLS/HR Metronidazole 100 ml @ 100 mls/hr Q8HR IV 02/26/25 14:00 02/28/25 14:10 100 MLS/HR Ergocalciferol 50,000 unit Q7D PO 02/27/25 14:15 02/27/25 15:36 50,000 UNIT Metoprolol Tartrate 50 mg BID PO 02/27/25 22:00 02/28/25 09:33 50 MG Sodium Chloride 1,000 ml @ 75 mls/hr [id number] IV 02/27/25 20:00 02/28/25 09:33 75 MLS/HR Nystatin 5 ml QID MT 02/28/25 12:00 02/28/25 12:27 5 ML Examination General Appearance: Alert, Oriented X3, Cooperative, No acute distress HEENT: Atraumatic, PERRLA, EOMI, Mucous membrane moist/pink Respiratory: Clear to auscultation, Normal air movement Cardiovascular: Regular rate, Normal S1, Normal S2, No murmurs, no chest wall tenderness Abdominal: Normal bowel sounds, Soft, mild tenderness on deep palpation Extremities: No clubbing, No cyanosis, No edema, Normal pulses, No tenderness/swelling Skin: No rashes, No breakdown, No significant lesion Neuro: Normal gait, Normal speech, Strength at 5/5 X4 ext, Normal tone, Sensation intact, Cranial nerves 3-12 NL, Reflexes 2+ Psych/Mental Status: Mental status NL, Mood NL laboratory and microbiology Laboratory Tests 02/28/25 16:10 02/28/25 05:32 Test 02/28/25 16:10 Range/Units Serum Glucose 112 H 74-106 mg/dL Microbiology Date/Time Source Procedure Growth Status 02/27/25 02:00 Nose MRSA Screen - Final Complete 02/25/25 23:40 Stool Stool Culture - Preliminary Resulted 02/25/25 23:40 Stool Shiga Toxin I & II - Final Resulted 02/25/25 23:40 Stool Clostridium difficile Toxin Assay - Final Resulted 02/25/25 17:17 Blood Blood Culture - Preliminary NO GROWTH AFTER 48 HOURS OF INCUBATION. Resulted Problem List/Assessment/Plan Problem List/Assessment/Plan # Sepsis due to colitis #Gastroenteritis likely viral or bacterial #Traveler's diarrhea - IV fluids - IV Zosyn switch to empiric antibiotic ceftriaxone and Flagyl - Follow stool WBC, culture, blood -lactic acid level 2.2> 2.1> 2.5> 1.7 - clear liquid diet, advanced accordingly -blood culture x2 no growth - Clostridium difficile/shiga toxin-negative -nasal MRSA-negative -monitor vital #Neutropenia WBC count 1.5>2.0>2.6 Continue empiric antibiotic Isolation precaution CBC WILMER due to dehydration Creatinine 2.37>3.02>3.08 IVF Encouraged oral hydration BMP Avoid nephrotoxic drugs # Macrocytic anemia due to vitamin B12 deficiency Vitamin B12 level 71 Vitamin B12 injection given 02/27/2025 # Essential hypertension -home medication: Bisoprolol Current blood pressure soft Metoprolol 50 mg bid # vitamin-D deficiency vitamin-D level 10.4 vitamin-D 41219 units p.o. Q weekly # pre-# diabetes hemoglobin A1c 5.8 # hyperthyroidism THS 0.53 monitor total T3 and free T4 # hypokalemia potassium 3.1>3.0 supplemented # lactic acidosis lactic acid level 2.2> 2.1> 2.5> 1.7 #History of Hepatic hemangioma - Likely resolved, CT shows Normal hepatic size without suspicious focal lesion. - Follow-up with PCP as outpatient after discharge # history of recent colonoscopy Colonoscopy report normal as per patient family members #Thrombocytopenia No signs symptoms of active bleeding, monitor CBC # Obesity, BMI 30.1 Lifestyle modification Goals of care discussions. More than 22 minute spent with patient. Case discussed with Dr. Delatorre Plan discussed with: Patient, Daughter, Other (Nurse) My Orders My Orders Orders - FRANCISCO ROMANO RESIDENT Procedure Category Date Status Time Metoprolol Tartrate PHA 02/27/25 In Process Tablet (Lopressor Ta 22:00 Sodium Chloride 0.9% PHA 02/27/25 In Process 20:00 Nystatin PHA 02/28/25 In Process (Mouth-Throat) 12:00 Communication Order ORDERS 02/28/25 Transmitted 10:00 Date of Service: Feb 28, 2025 Billing Provider: ROLLY DELATORRE MD Common Visit Codes: [id number] INP/OBS CARE(HIGH) FRANCISCO ROMANO Feb 28, 2025 17:11 GIANCARLO MCCABE RESIDENT Mar 06, 2025 10:30 ROLLY DELATORRE MD Mar 07, 2025 13:29
[2025-03-01] VITALS (8 sets, daily range): BP systolic 140–165; BP diastolic 78–101; PULSE 54–89; RESP 16–19; TEMP 97.5–98.3; O2SAT 93–99
[2025-03-01 06:30] LABS: Hemoglobin 12.5 g/dL (13.5-17.5)
[2025-03-01 06:31] LABS: Sodium 142 mmol/L (136-145)
[2025-03-01 06:32] LABS: Anion Gap 11 (5-15)
[2025-03-01 06:35] LABS: Hematocrit 35.5 % (41.0-53.0); Mean Corpuscular Hemoglobin 35.4 pg (28.0-32.0); Mean Corpuscular Volume 100.2 fL (80.0-100.0)
[2025-03-01 06:37] LABS: BUN/Creatinine Ratio 10.1 (10.0-20.0); Calcium 8.0 mg/dL (8.7-10.4); Carbon Dioxide 19 mmol/L (20-31); Chloride 112 mmol/L (98-107); Glucose 95 mg/dL (74-106); Potassium 3.4 mmol/L (3.5-5.1)
[2025-03-01 06:38] LABS: Blood Urea Nitrogen 34 mg/dL (9-23)
[2025-03-01 08:16] LABS: Total Cells Counted 100.0 (100)
[2025-03-01 08:17] LABS: Anisocytosis Slight; Macrocytosis Slight
[2025-03-01] MEDS: POTASSIUM CHL 20 Meq TABLET PO ONE (08:43)
[2025-03-01] MEDS: SODIUM CHLORIDE 0.9% 500 ML IV ONE (09:59)
[2025-03-01 11:24] LABS: Urine Protein, UAD Negative (Negative)
[2025-03-01 11:33] LABS: Protein, Urine 7.5 mg/dL (1-14)
[2025-03-01 11:44] LABS: Protein, Urine < 6.0 mg/dL (1-14)
[2025-03-01 11:46] LABS: Free T4 (Free Thyroxine) 1.25 ng/dL (0.89-1.76)
--- NOTE | 2025-03-01 12:55 | DVH ---
INDICATION: WILMER TECHNIQUE: Multiple real-time sonographic images of the kidneys and bladder were obtained. COMPARISON: None FINDINGS: The right kidney measures 13 cm in length, which is normal in size. There is normal echogen icity of the right kidney. No hydronephrosis. The left kidney measures 13 cm in length, which is normal in size. There is normal echogenicity of th e left kidney. No hydronephrosis. No large intraluminal masses are seen in the bladder. IMPRESSION: 1. Normal sonographic appearance of the kidneys. No hydronephrosis.
--- NOTE | 2025-03-01 13:39 | DVHINCON2 ---
Date of service: Mar 01, [address] Schulte Reason for Consultation Acute kidney injury History of Present Illness Patient is 64-year-old male with past medical history significant for hypertension in liver spot status post biopsy at [place] was diagnosed with hemangioma no history of liver cirrhosis patient recently traveled to [place] status post colonoscopy patient is admitted for abdominal pain diarrhea and sepsis. On admission patient noted to have elevated BUN creatinine nephrology is consulted for acute kidney injury Past Medical History Hypertension, liver hemangioma Past Surgical History Liver biopsy Allergies: Coded Allergies: NO KNOWN ALLERGIES (Unverified , 02/26/25) Current Medications Current Medications Medications (Trade) Dose Ordered Sig/Kaylah Route PRN Reason Start Time Stop Time Status Last Admin Sodium Bicarbonate 50 ml/ Sodium Chloride 1,050 ml @ 120 mls/hr Q8H45M IV 03/01/25 13:30 UNV Review of Systems All 12 item review of systems reviewed with the patient nonsignificant except what is mentioned in the history of present illness H&P Exam Vital Signs/I&O Vital Sign Date Time Temp Pulse Resp B/P (MAP) Pulse Ox O2 Delivery O2 Flow Rate FiO2 03/01/25 13:00 97.6 58 18 140/80 (100) 98 97.6 03/01/25 08:00 Room Air* 0 21 Intake and Output 02/28/25 03/01/25 19:00 07:00 Intake Total 1150 ml 850 ml Output Total 150 ml Balance 1000 ml 850 ml Intake Oral 1000 ml 750 ml IV Total 150 ml 100 ml Output Urine Total 150 ml # Voids 2 2 # Bowel Movements 1 Physical Exam Patient lying comfortably in bed, at the bedside Lungs clear to auscultation bilaterally Cardiac exam regular rate and rhythm GI soft nontender was normal Extremities no clubbing cyanosis or edema Neuro nonfocal Labs/Diagnostic Data Labs/Diagnostic Data Laboratory Tests Test 03/01/25 10:55 03/01/25 05:05 02/28/25 16:10 02/28/25 05:32 Range/Units Urine Color Light-yellow Yellow Urine Clarity Clear Clear Urine pH 5.5 5.0-9.0 Urine Specific [place] 1.005 1.001-1.035 Urine Protein Negative Negative Urine Ketones Negative Negative Urine Blood Trace H Negative /uL Urine Nitrite Negative Negative Urine Bilirubin Negative Negative Urine Urobilinogen Normal Negative mg/dL Urine Leukocyte Esterase Negative Negative /uL Urine RBC <1 0 - 3 /hpf Urine Microscopic WBC 1 0-3 /HPF Urine Squamous Epithelial Cells None seen <5 /hpf Urine Bacteria None seen None Seen /hpf Urine Osmolality 166 mOsm/kg Urine Creatinine 36.78 30.0-125.0 mg/dL Urine Protein/Creatinine Ratio 0.17 Urine Sodium 22 L 40-220 mmol/L Urine Potassium 6 L 12-62 mmol/L Urine Glucose Normal Normal mg/dL Urine Total Protein < 6.0 1-14 mg/dL White Blood Count 4.0 #L 2.6 L 4.4-10.8 10^3/uL Red Blood Count 3.54 L 3.72 L 4.5-5.90 10^6/uL Hemoglobin 12.5 L 13.1 L 13.5-17.5 g/dL Hematocrit 35.5 L 36.9 L 41.0-53.0 % Mean Corpuscular Volume 100.2 H 99.0 80.0-100.0 fL Mean Corpuscular Hemoglobin 35.4 H 35.2 H 28.0-32.0 pg Mean Corpuscular Hemoglobin Concent 35.3 35.5 32.0-36.0 g/dL Red Cell Distribution Width 14.7 H 15.3 H 11.8-14.3 % Platelet Count 121 L 123 L 140-450 10^3/uL Mean Platelet Volume 8.6 8.4 6.9-10.8 fL Neutrophils (%) (Auto) 54.4 37.0-80.0 % Lymphocytes (%) (Auto) 27.6 10.0-50.0 % Monocytes (%) (Auto) 17.5 H 0.0-12.0 % Basophils (%) (Auto) 0.2 0.0-2.0 % Neutrophils # (Auto) 1.4 L 1.6-8.6 10 ^3/uL Lymphocytes # (Auto) 0.7 0.4-5.4 10 ^3/uL Monocytes # (Auto) 0.5 0-1.3 10 ^3/uL Differential Total Cells Counted 100.0 100 Neutrophils % (Manual) 56 37.0-80.0 Band Neutrophils % (Manual) 3 Lymphocytes % (Manual) 23 10.0-50.0 Monocytes % (Manual) 18 H 0-12 Eosinophils % (Manual) 0 0-7 Basophils % (Manual) 0 0.0-2.0 Metamyelocytes % (manual) 0 Myelocytes % (Manual) 0 Promyelocytes % (Manual) 0 Blast Cells % (Manual) 0 Reactive Lymphocytes 0 Platelet Estimate Decreased Anisocytosis (manual) Slight Macrocytosis Slight Sodium Level 142 141 140 136-145 mmol/L Potassium Level 3.4 L 3.6 3.0 L 3.5-5.1 mmol/L Chloride Level 112 H 112 H 108 H 98-107 mmol/L Carbon Dioxide Level 19 L 19 L 20 20-31 mmol/L Anion Gap 11 10 12 5-15 Blood Urea Nitrogen 34 H 42 H 33 H 9-23 mg/dL Creatinine 3.37 H 3.08 H 3.02 H 0.700-1.30 mg/dL Glomerular Filtration Rate Calc 19 22 22 >90 mL/min BUN/Creatinine Ratio 10.1 13.6 10.9 10.0-20.0 Serum Glucose 95 112 H 106 74-106 mg/dL Calcium Level 8.0 L 7.6 L 8.1 L 8.7-10.4 mg/dL Lactate Dehydrogenase 259 H 120-246 U/L Free Thyroxine (T4) Calculated 1.25 0.89-1.76 ng/dL Total Triiodothyronine (TT3) 0.91 0.60-1.81 ng/mL Eosinophils (%) (Auto) 0.3 0.0-7.0 % Eosinophils # (Auto) 0 0-0.8 10 ^3/uL Basophils # (Auto) 0 0-0.2 10 ^3/uL Nucleated Red Blood Cells 0.5 % Phosphorus Level 3.2 2.4-5.1 mg/dL Magnesium Level 2.2 1.6-2.6 mg/dL Test 02/27/25 18:08 02/27/25 10:09 02/26/25 23:30 02/26/25 07:27 Range/Units Sodium Level 141 144 136-145 mmol/L Potassium Level 3.1 L 3.0 L 3.5-5.1 mmol/L Chloride Level 107 109 H 98-107 mmol/L Carbon Dioxide Level 21 24 20-31 mmol/L Anion Gap 13 11 5-15 Blood Urea Nitrogen 30 H 34 #H 9-23 mg/dL Creatinine 2.79 H 2.37 H 0.700-1.30 mg/dL Glomerular Filtration Rate Calc 24 30 >90 mL/min BUN/Creatinine Ratio 10.8 14.3 10.0-20.0 Serum Glucose 120 H 111 H 74-106 mg/dL Calcium Level 8.2 L 8.1 L 8.7-10.4 mg/dL White Blood Count 2.0 L 4.4-10.8 10^3/uL Red Blood Count 4.12 L 4.5-5.90 10^6/uL Hemoglobin 14.2 13.5-17.5 g/dL Hematocrit 40.9 L 41.0-53.0 % Mean Corpuscular Volume 99.3 80.0-100.0 fL Mean Corpuscular Hemoglobin 34.4 H 28.0-32.0 pg Mean Corpuscular Hemoglobin Concent 34.7 32.0-36.0 g/dL Red Cell Distribution Width 15.0 H 11.8-14.3 % Platelet Count 132 L 140-450 10^3/uL Mean Platelet Volume 8.3 6.9-10.8 fL Neutrophils (%) (Auto) 53.3 37.0-80.0 % Lymphocytes (%) (Auto) 32.0 10.0-50.0 % Monocytes (%) (Auto) 14.4 H 0.0-12.0 % Eosinophils (%) (Auto) 0.1 0.0-7.0 % Basophils (%) (Auto) 0.2 0.0-2.0 % Neutrophils # (Auto) 1.0 L 1.6-8.6 10 ^3/uL Lymphocytes # (Auto) 0.6 0.4-5.4 10 ^3/uL Monocytes # (Auto) 0.3 0-1.3 10 ^3/uL Eosinophils # (Auto) 0 0-0.8 10 ^3/uL Basophils # (Auto) 0 0-0.2 10 ^3/uL Nucleated Red Blood Cells 0.6 % Magnesium Level 2.0 1.6-2.6 mg/dL Triglycerides Level 193 H < 150 mg/dL Cholesterol Level 113 < 200 mg/dL LDL Cholesterol 55 < 100 mg/dL HDL Cholesterol 24 L 40-59 mg/dL Vitamin B12 Level 71 L 211-911 pg/mL Vitamin D 25-Hydroxy 11.8 L 30.0-100 ng/mL Folic Acid 19.89 >5.38 ng/mL Random Vancomycin Level 9.8 5-10 ug/mL Stool for White Cells None seen Lactic Acid Level 1.7 0.4-2.0 mmol/L Test 02/26/25 06:21 02/26/25 04:04 02/26/25 02:40 02/25/25 23:40 Range/Units White Blood Count 1.5 *L 4.4-10.8 10^3/uL Red Blood Count 4.13 L 4.5-5.90 10^6/uL Hemoglobin 14.3 13.5-17.5 g/dL Hematocrit 41.6 41.0-53.0 % Mean Corpuscular Volume 100.6 H 80.0-100.0 fL Mean Corpuscular Hemoglobin 34.6 H 28.0-32.0 pg Mean Corpuscular Hemoglobin Concent 34.4 32.0-36.0 g/dL Red Cell Distribution Width 15.3 H 11.8-14.3 % Platelet Count 139 L 140-450 10^3/uL Mean Platelet Volume 8.1 6.9-10.8 fL Neutrophils (%) (Auto) 37.0-80.0 % Lymphocytes (%) (Auto) 10.0-50.0 % Monocytes (%) (Auto) 0.0-12.0 % Basophils (%) (Auto) 0.0-2.0 % Neutrophils # (Auto) 1.6-8.6 10 ^3/uL Lymphocytes # (Auto) 0.4-5.4 10 ^3/uL Monocytes # (Auto) 0-1.3 10 ^3/uL Differential Total Cells Counted 100.0 100 Neutrophils % (Manual) 50 37.0-80.0 Band Neutrophils % (Manual) 18 Lymphocytes % (Manual) 27 10.0-50.0 Monocytes % (Manual) 5 0-12 Eosinophils % (Manual) 0 0-7 Basophils % (Manual) 0 0.0-2.0 Metamyelocytes % (manual) 0 Myelocytes % (Manual) 0 Promyelocytes % (Manual) 0 Blast Cells % (Manual) 0 Reactive Lymphocytes 0 Platelet Estimate Decreased Macrocytosis Slight Sodium Level 141 136-145 mmol/L Potassium Level 3.1 L 3.5-5.1 mmol/L Chloride Level 107 98-107 mmol/L Carbon Dioxide Level 22 20-31 mmol/L Anion Gap 12 5-15 Blood Urea Nitrogen 16 9-23 mg/dL Creatinine 0.92 0.700-1.30 mg/dL Glomerular Filtration Rate Calc 92 >90 mL/min BUN/Creatinine Ratio 17.4 10.0-20.0 Serum Glucose 127 H 74-106 mg/dL Hemoglobin A1c 5.8 H <5.7 % A1C Calcium Level 8.4 L 8.7-10.4 mg/dL Magnesium Level 1.8 1.6-2.6 mg/dL Total Bilirubin 0.5 0.2-1.0 mg/dL Aspartate Amino Transferase (AST) 23 13-40 U/L Alanine Aminotransferase (ALT) 21 7-40 U/L Alkaline Phosphatase 54 46-116 U/L Total Protein 6.7 5.7-8.2 g/dL Albumin 4.1 3.2-4.8 g/dL Thyroid Stimulating Hormone (TSH) 0.53 L 0.55-4.78 uIU/mL Vitamin D 25-Hydroxy 10.4 L 30.0-100 ng/mL Lactic Acid Level 2.5 *H 0.4-2.0 mmol/L Stool Occult Blood Positive Negative Stool Occult Blood Sample #3 Negative Stool for White Cells Few Test 02/25/25 22:40 02/25/25 19:14 02/25/25 17:17 02/25/25 16:48 Range/Units Lactic Acid Level 2.1 *H 2.2 *H 2.7 *H 0.4-2.0 mmol/L Total Bilirubin 0.5 0.2-1.0 mg/dL Direct Bilirubin 0.2 <0.3 mg/dL Aspartate Amino Transferase (AST) 16 13-40 U/L Alanine Aminotransferase (ALT) 21 7-40 U/L Alkaline Phosphatase 59 46-116 U/L Total Protein 6.9 5.7-8.2 g/dL Albumin 4.2 3.2-4.8 g/dL Urine Color Light-orange Yellow Urine Clarity Ex.turbid Clear Urine pH 5.5 5.0-9.0 Urine Specific [place] 1.029 1.001-1.035 Urine Protein 1+ H Negative Urine Ketones 1+ H Negative Urine Blood Trace H Negative /uL Urine Nitrite Negative Negative Urine Bilirubin Negative Negative Urine Urobilinogen Normal Negative mg/dL Urine Leukocyte Esterase Negative Negative /uL Urine RBC 6 0 - 3 /hpf Urine Microscopic WBC 0-3 /HPF Urine Squamous Epithelial Cells None seen <5 /hpf Urine Amorphous Crystals Mod None Seen /hpf Urine Bacteria None seen None Seen /hpf Urine Glucose Trace Normal mg/dL Test 02/25/25 13:32 02/25/25 12:03 Range/Units SARS-CoV-2 Antigen (Rapid) Negative NEGATIVE White Blood Count 2.0 L 4.4-10.8 10^3/uL Red Blood Count 4.44 L 4.5-5.90 10^6/uL Hemoglobin 15.5 13.5-17.5 g/dL Hematocrit 45.1 41.0-53.0 % Mean Corpuscular Volume 101.6 H 80.0-100.0 fL Mean Corpuscular Hemoglobin 35.0 H 28.0-32.0 pg Mean Corpuscular Hemoglobin Concent 34.4 32.0-36.0 g/dL Red Cell Distribution Width 15.1 H 11.8-14.3 % Platelet Count 149 140-450 10^3/uL Mean Platelet Volume 8.1 6.9-10.8 fL Neutrophils (%) (Auto) 81.1 H 37.0-80.0 % Lymphocytes (%) (Auto) 9.0 L 10.0-50.0 % Monocytes (%) (Auto) 9.8 0.0-12.0 % Eosinophils (%) (Auto) 0.0 0.0-7.0 % Basophils (%) (Auto) 0.1 0.0-2.0 % Neutrophils # (Auto) 1.6 1.6-8.6 10 ^3/uL Lymphocytes # (Auto) 0.2 L 0.4-5.4 10 ^3/uL Monocytes # (Auto) 0.2 0-1.3 10 ^3/uL Eosinophils # (Auto) 0 0-0.8 10 ^3/uL Basophils # (Auto) 0 0-0.2 10 ^3/uL Nucleated Red Blood Cells 0.4 % Sodium Level 140 136-145 mmol/L Potassium Level 3.9 3.5-5.1 mmol/L Chloride Level 104 98-107 mmol/L Carbon Dioxide Level 24 20-31 mmol/L Anion Gap 12 5-15 Blood Urea Nitrogen 19 9-23 mg/dL Creatinine 1.15 0.700-1.30 mg/dL Glomerular Filtration Rate Calc 71 >90 mL/min BUN/Creatinine Ratio 16.5 10.0-20.0 Serum Glucose 142 H 74-106 mg/dL Calcium Level 9.0 8.7-10.4 mg/dL Troponin I High Sensitivity 5 </=54 ng/L Microbiology Date/Time Source Procedure Growth Status 02/27/25 02:00 Nose MRSA Screen - Final Complete Assessment Acute kidney injury secondary to hemodynamic mediated, FeNa < 1% Metabolic acidosis Colitis Dehydration Sepsis Vitamin-D deficiency Recommendations Closely monitor fluid and electrolytes Avoid nephrotoxic medication Strict I&Os Urinalysis is bland Kidney ultrasound reported within normal limit Vitamin-D replacement IVF 1/2 NS with 50 mEq sodium bicarb at 120 cc/hour IV antibiotics GI consult We will continue to follow Patient seen and examined by myself. I discussed my plan of care with the patient, and his daughter at the bedside I would like to thank Dr. Schulte for the consult, will follow up Plan discussed with: Patient, Spouse, Daughter (Avani) LEEROY VENEGAS MD Mar 01, 2025 13:39
[2025-03-01] MEDS: SODIUM BICARB 50mEq/50ml Vial 50 ML in SOD CHL 0.45% 1,000 ML IV SCH (16:04)
[2025-03-01 19:11] LABS: Potassium 3.8 mmol/L (3.5-5.1); Sodium 143 mmol/L (136-145)
[2025-03-01 19:12] LABS: Anion Gap 9 (5-15); Carbon Dioxide 21 mmol/L (20-31)
[2025-03-01 19:17] LABS: BUN/Creatinine Ratio 9.5 (10.0-20.0); Glucose 99 mg/dL (74-106)
[2025-03-01 19:18] LABS: Blood Urea Nitrogen 31 mg/dL (9-23); Calcium 8.1 mg/dL (8.7-10.4); Chloride 113 mmol/L (98-107)
--- NOTE | 2025-03-01 19:59 | DVHPNRES ---
Progress Note Date Seen: Mar 01, 2025 Resident Creating Document: FRANCISCO ROMANO RESIDENT Medical Necessity Reason Pt with a Central, PICC or Fol: No Subjective Review of Systems Todd Day is a 64-year-old male with a known medical history of hypertension and hepatic hemangioma who presented with complaints of persistent nausea, repeated episodes of vomiting, diarrhea, headache, and generalized weakness that have persisted over the past three days. He reports experiencing . These symptoms are accompanied by fever and shortness of breath. Patient had colonoscopy week ago and came to [facility] 3 days ago. Since came to [facility] she had loose stool associated with abdominal pain. Spoke to daughter (Avani), his father went to restroom every 1-2 hour for last 2 days. Patient also fever for same duration. Past Medical History (PMH): hypertension and hepatic hemangioma Past Surgical History (PSH): Denies past surgical history Family history (FH): Nothing contributory EtOH: Denies alcohol use Smoking /Vaping: Denies Recreational Drugs: Denies Residence: Lives with daughter Home Medications: Bisoprolol, candesartan Allergies: No known allergies PCP: No PCP. NC in and evaluated in bedside today. a complaint with patient in bedside. Discussed management plan and encouraged water intake as tolerated. Ultrasound kidney done. No acute event overnight. Objective vital signs Vital Sign Date Time Temp Pulse Resp B/P (MAP) Pulse Ox O2 Delivery O2 Flow Rate FiO2 03/01/25 17:00 97.7 57 18 146/89 (108) 98 97.7 03/01/25 08:00 Room Air* 0 21 Total Intake and Output 02/28/25 02/28/25 03/01/25 15:00 23:00 07:00 Intake Total 50 ml 1100 ml 850 ml Output Total 150 ml Balance -100 ml 1100 ml 850 ml medications Current Medications Medications Dose Ordered Sig/Kaylah Route Start Time Stop Time Status Last Admin Dose Admin Acetaminophen 650 mg Q6HP PRN PO 02/26/25 07:15 02/26/25 16:46 650 MG Ceftriaxone Sodium 50 ml @ 100 mls/hr DAILY@09 IV 02/27/25 09:00 03/01/25 08:44 100 MLS/HR Metronidazole 100 ml @ 100 mls/hr Q8HR IV 02/26/25 14:00 03/01/25 13:59 100 MLS/HR Ergocalciferol 50,000 unit Q7D PO 02/27/25 14:15 02/27/25 15:36 50,000 UNIT Metoprolol Tartrate 50 mg BID PO 02/27/25 22:00 03/01/25 08:44 50 MG Nystatin 5 ml QID MT 02/28/25 12:00 03/01/25 18:07 5 ML Sodium Bicarbonate 50 ml/ Sodium Chloride 1,050 ml @ 120 mls/hr Q8H45M IV 03/01/25 13:30 03/01/25 16:04 120 MLS/HR Examination General Appearance: Alert, Oriented X3, Cooperative, No acute distress HEENT: Atraumatic, PERRLA, EOMI, Mucous membrane moist/pink Respiratory: Clear to auscultation, Normal air movement Cardiovascular: Regular rate, Normal S1, Normal S2, No murmurs, no chest wall tenderness Abdominal: Normal bowel sounds, Soft, nontender abdomen on palpation Extremities: No clubbing, No cyanosis, No edema, Normal pulses, No tenderness/swelling Skin: No rashes, No breakdown, No significant lesion Neuro: Normal gait, Normal speech, Strength at 5/5 X4 ext, Normal tone, Sensation intact, Cranial nerves 3-12 NL, Reflexes 2+ Psych/Mental Status: Mental status NL, Mood NL laboratory and microbiology Laboratory Tests 03/01/25 18:24 03/01/25 05:05 Test 03/01/25 18:24 Range/Units Serum Glucose 99 74-106 mg/dL Microbiology Date/Time Source Procedure Growth Status 02/27/25 02:00 Nose MRSA Screen - Final Complete 02/25/25 23:40 Stool Stool Culture - Preliminary Resulted 02/25/25 23:40 Stool Shiga Toxin I & II - Final Resulted 02/25/25 23:40 Stool Clostridium difficile Toxin Assay - Final Resulted 02/25/25 17:17 Blood Blood Culture - Preliminary NO GROWTH AFTER 72 HOURS OF INCUBATION. Resulted Problem List/Assessment/Plan Problem List/Assessment/Plan # Sepsis due to colitis #Gastroenteritis likely viral or bacterial #Traveler's diarrhea # questionable hemolytic uremic syndrome - IV fluids - IV Zosyn switch to empiric antibiotic ceftriaxone and Flagyl - Follow stool WBC, culture, blood -lactic acid level 2.2> 2.1> 2.5> 1.7 -LDH 156, thrombocytopenia -blood culture x2 no growth - Clostridium difficile/shiga toxin-negative -Nephrology consult -nasal MRSA-negative -monitor vital #Neutropenia WBC count 1.5>2.0>2.6>4.0 Continue empiric antibiotic CBC WILMER due to dehydration Creatinine 2.37>3.02>3.08>3.37>3.27 FeNa- 1.4% IVF Encouraged oral hydration BMP Avoid nephrotoxic drugs Post void bladder scan 22 ml # Macrocytic anemia due to vitamin B12 deficiency Vitamin B12 level 71 Vitamin B12 injection given 02/27/2025 # Essential hypertension -home medication: Bisoprolol Current blood pressure soft Metoprolol 50 mg bid #Thrombocytopenia No signs symptoms of active bleeding CBC # vitamin-D deficiency vitamin-D level 10.4 vitamin-D 35822 units p.o. Q weekly # pre-diabetes hemoglobin A1c 5.8 # hyperthyroidism THS 0.53 Normal T3 and free T4 # hypokalemia Resolved # lactic acidosis lactic acid level 2.2> 2.1> 2.5> 1.7 #History of Hepatic hemangioma - Likely resolved, CT shows Normal hepatic size without suspicious focal lesion. - Follow-up with PCP as outpatient after discharge # history of recent colonoscopy Colonoscopy report normal as per patient family members #Thrombocytopenia No signs symptoms of active bleeding, monitor CBC # Obesity, BMI 30.1 Lifestyle modification Goals of care discussions. More than 22 minute spent with patient. Case discussed with Dr. Delatorre Plan discussed with: Patient (Nurse), Spouse My Orders My Orders Orders - FRANCISCO ROMANO Procedure Category Date Status Time Kidney US 03/01/25 Resulted 11:23 Dietary Evaluation Review Comments: Nutrition Recommendation: 1) Advance to [facility] 60gm + 2gm Na diet as medically feasible 2) Consider Ensure clear 240ml TID 3) Consider vitamin B12 & folate supplements Expected Outcomes/Goals: To meet >75% estimated needs Lab values to improve Fu 2-3 days Date of Service: Mar 01, 2025 Billing Provider: ROLLY DELATORRE MD Common Visit Codes: [id number] INP/OBS CARE(HIGH) FRANCISCO ROMANO Mar 01, 2025 19:59 GIANCARLO MCCABE RESIDENT Mar 06, 2025 10:31 ROLLY DELATORRE MD Mar 07, 2025 19:31
[2025-03-02] VITALS (9 sets, daily range): BP systolic 146–163; BP diastolic 76–93; PULSE 51–63; RESP 17–18; TEMP 97.6–98.6; O2SAT 96–99
[2025-03-02] MEDS: METOPROLOL TARTRATE 50 MG TAB PO SCH (06:46)
[2025-03-02 07:01] LABS: Hematocrit 35.5 % (41.0-53.0); Hemoglobin 12.3 g/dL (13.5-17.5); Mean Corpuscular Hemoglobin 34.5 pg (28.0-32.0); Mean Corpuscular Volume 99.5 fL (80.0-100.0); Nucleated Red Blood Cells % 0.0 %
[2025-03-02 07:11] LABS: Sodium 142 mmol/L (136-145)
[2025-03-02 07:12] LABS: Anion Gap 11 (5-15); Calcium 7.9 mg/dL (8.7-10.4); Carbon Dioxide 20 mmol/L (20-31); Chloride 111 mmol/L (98-107); Potassium 3.2 mmol/L (3.5-5.1)
[2025-03-02 07:17] LABS: BUN/Creatinine Ratio 10.9 (10.0-20.0); Glucose 92 mg/dL (74-106)
[2025-03-02 07:19] LABS: Blood Urea Nitrogen 33 mg/dL (9-23)
[2025-03-02] MEDS: POTASSIUM CHL 20 Meq TABLET PO ONE (09:55)
--- NOTE | 2025-03-02 12:20 | DVHPNRES ---
Progress Note Date Seen: Mar 02, 2025 Resident Creating Document: FRANCISCO ROMANO RESIDENT Medical Necessity Reason Pt with a Central, PICC or Fol: No Subjective Review of Systems Todd Day is a 64-year-old male with a known medical history of hypertension and hepatic hemangioma who presented with complaints of persistent nausea, repeated episodes of vomiting, diarrhea, headache, and generalized weakness that have persisted over the past three days. He reports experiencing . These symptoms are accompanied by fever and shortness of breath. Patient had colonoscopy week ago and came to [facility] 3 days ago. Since came to [facility] she had loose stool associated with abdominal pain. Spoke to daughter (Avani), his father went to restroom every 1-2 hour for last 2 days. Patient also fever for same duration. Past Medical History (PMH): hypertension and hepatic hemangioma Past Surgical History (PSH): Denies past surgical history Family history (FH): Nothing contributory EtOH: Denies alcohol use Smoking /Vaping: Denies Recreational Drugs: Denies Residence: Lives with daughter Home Medications: Bisoprolol, candesartan Allergies: No known allergies PCP: No PCP. Seen and evaluated in bedside today. Patient abdominal pain is improving . No acute event overnight. Continue IVF, monitor renal function. Objective vital signs Vital Sign Date Time Temp Pulse Resp B/P (MAP) Pulse Ox O2 Delivery O2 Flow Rate FiO2 03/02/25 09:00 98.2 58 17 162/88 (112) 98 98.2 03/02/25 08:00 Room Air* 0 21 Total Intake and Output 03/01/25 03/01/25 03/02/25 15:00 23:00 07:00 Intake Total 150 ml 1300 ml 2000 ml Balance 150 ml 1300 ml 2000 ml medications Current Medications Medications Dose Ordered Sig/Kaylah Route Start Time Stop Time Status Last Admin Dose Admin Acetaminophen 650 mg Q6HP PRN PO 02/26/25 07:15 03/02/25 08:31 650 MG Ceftriaxone Sodium 50 ml @ 100 mls/hr DAILY@09 IV 02/27/25 09:00 03/02/25 08:30 100 MLS/HR Metronidazole 100 ml @ 100 mls/hr Q8HR IV 02/26/25 14:00 03/02/25 05:50 100 MLS/HR Ergocalciferol 50,000 unit Q7D PO 02/27/25 14:15 02/27/25 15:36 50,000 UNIT Nystatin 5 ml QID MT 02/28/25 12:00 03/02/25 11:58 5 ML Sodium Bicarbonate 50 ml/ Sodium Chloride 1,050 ml @ 120 mls/hr Q8H45M IV 03/01/25 13:30 03/02/25 06:04 120 MLS/HR Metoprolol Tartrate 100 mg BID PO 03/02/25 06:30 03/02/25 06:46 100 MG Examination General Appearance: Alert, Oriented X3, Cooperative, No acute distress HEENT: Atraumatic, PERRLA, EOMI, Mucous membrane moist/pink Respiratory: Clear to auscultation, Normal air movement Cardiovascular: Regular rate, Normal S1, Normal S2, No murmurs, no chest wall tenderness Abdominal: Normal bowel sounds, Soft, nontender abdomen on palpation Extremities: No clubbing, No cyanosis, No edema, Normal pulses, No tenderness/swelling Skin: No rashes, No breakdown, No significant lesion Neuro: Normal gait, Normal speech, Strength at 5/5 X4 ext, Normal tone, Sensation intact, Cranial nerves 3-12 NL, Reflexes 2+ Psych/Mental Status: Mental status NL, Mood NL laboratory and microbiology Laboratory Tests 03/02/25 05:36 Test 03/02/25 05:36 Range/Units Serum Glucose 92 74-106 mg/dL Microbiology Date/Time Source Procedure Growth Status 02/27/25 02:00 Nose MRSA Screen - Final Complete 02/25/25 23:40 Stool Stool Culture - Preliminary Salmonella species Resulted 02/25/25 23:40 Stool Shiga Toxin I & II - Final Resulted 02/25/25 23:40 Stool Clostridium difficile Toxin Assay - Final Resulted 02/25/25 17:17 Blood Blood Culture - Preliminary NO GROWTH AFTER 72 HOURS OF INCUBATION. Resulted Problem List/Assessment/Plan Problem List/Assessment/Plan # Typhoid fever # Sepsis due to colitis #Gastroenteritis likely viral or bacterial #Traveler's diarrhea # questionable hemolytic uremic syndrome - IV fluids -started ampicillin IV antibiotic and previously on Zosyn, ceftriaxone and Flagyl - Follow stool WBC, culture, blood -lactic acid level 2.2> 2.1> 2.5> 1.7 -LDH 156, thrombocytopenia -blood culture x2 no growth - Clostridium difficile/shiga toxin-negative -stool for Salmonella is positive -Nephrology consult -nasal MRSA-negative -monitor vital #Neutropenia Neutropenia resolved Continue empiric antibiotic CBC WILMER due to dehydration Creatinine 2.37>3.02>3.08>3.37>3.27>3.05 FeNa- 1.4% IVF Encouraged oral hydration BMP Avoid nephrotoxic drugs # Macrocytic anemia due to vitamin B12 deficiency Vitamin B12 level 71 Vitamin B12 injection given 02/27/2025 # Essential hypertension -home medication: Bisoprolol Current blood pressure soft Metoprolol 25 mg b.i.d. Amlodipine 5 mg daily #Thrombocytopenia No signs symptoms of active bleeding CBC # vitamin-D deficiency vitamin-D level 10.4 vitamin-D 78492 units p.o. Q weekly # pre-diabetes hemoglobin A1c 5.8 # hyperthyroidism THS 0.53 Normal T3 and free T4 # hypokalemia Resolved # lactic acidosis lactic acid level 2.2> 2.1> 2.5> 1.7 #History of Hepatic hemangioma - Likely resolved, CT shows Normal hepatic size without suspicious focal lesion. - Follow-up with PCP as outpatient after discharge # history of recent colonoscopy Colonoscopy report normal as per patient family members #Thrombocytopenia No signs symptoms of active bleeding, monitor CBC # Obesity, BMI 30.1 Lifestyle modification Goals of care discussions. More than 22 minute spent with patient. Case discussed with Dr. Delatorre Plan discussed with: Patient, Other (Nurse) My Orders My Orders Orders - FRANCISCO ROMANO RESIDENT Procedure Category Date Status Time Metoprolol Tartrate PHA 03/02/25 In Process Tablet (Lopressor Ta 06:30 Dietary Evaluation Review Comments: Nutrition Recommendation: 1) Advance to [facility] 60gm + 2gm Na diet as medically feasible 2) Consider Ensure clear 240ml TID 3) Consider vitamin B12 & folate supplements Expected Outcomes/Goals: To meet >75% estimated needs Lab values to improve Fu 2-3 days Date of Service: Mar 02, 2025 Billing Provider: ROLLY DELATORRE MD Common Visit Codes: [id number] INP/OBS CARE(HIGH) FRANCISCO ROMANO RESIDENT Mar 02, 2025 12:20 GIANCARLO MCCABE RESIDENT Mar 06, 2025 10:32 ROLLY DELATORRE MD Mar 07, 2025 20:20
[2025-03-02] MEDS: AMPICILLIN INJ 500 MG in SODIUM CHL 0.9% 50 ML IV ONE (14:38)
--- NOTE | 2025-03-02 16:38 | DVHPN2 ---
Progress Note Date Seen: Mar 02, 2025 Medical Necessity Reason Pt with a Central, PICC or Fol: No Subjective Patient reports: No new complaints, Feels better Review of Systems: HEENT:Normal, CVS:Normal, RESPIRATORY:Normal, GI:Normal, :Normal, MSK:Normal, NEURO:Normal Objective vital signs Vital Sign Date Time Temp Pulse Resp B/P (MAP) Pulse Ox O2 Delivery O2 Flow Rate FiO2 03/02/25 14:37 149/76 03/02/25 13:00 97.7 51 17 99 97.7 03/02/25 08:00 Room Air* 0 21 Total Intake and Output 03/01/25 03/01/25 03/02/25 15:00 23:00 07:00 Intake Total 150 ml 1300 ml 2000 ml Balance 150 ml 1300 ml 2000 ml medications Current Medications Medications Dose Ordered Sig/Kaylah Route Start Time Stop Time Status Last Admin Dose Admin Acetaminophen 650 mg Q6HP PRN PO 02/26/25 07:15 03/02/25 08:31 650 MG Ergocalciferol 50,000 unit Q7D PO 02/27/25 14:15 02/27/25 15:36 50,000 UNIT Nystatin 5 ml QID MT 02/28/25 12:00 03/02/25 11:58 5 ML Sodium Bicarbonate 50 ml/ Sodium Chloride 1,050 ml @ 120 mls/hr [id number] IV 03/01/25 13:30 03/02/25 16:22 120 MLS/HR Metoprolol Tartrate 25 mg BID PO 03/02/25 22:00 Amlodipine Besylate 5 mg DAILY PO 03/03/25 10:00 Ampicillin Sodium 500 mg/Sodium Chloride 50 ml @ 100 mls/hr Q6HR IV 03/02/25 18:00 laboratory and microbiology Laboratory Tests 03/02/25 05:36 Test 03/02/25 05:36 Range/Units Serum Glucose 92 74-106 mg/dL Microbiology Date/Time Source Procedure Growth Status 02/27/25 02:00 Nose MRSA Screen - Final Complete 02/25/25 23:40 Stool Stool Culture - Preliminary Salmonella species Resulted 02/25/25 23:40 Stool Shiga Toxin I & II - Final Resulted 02/25/25 23:40 Stool Clostridium difficile Toxin Assay - Final Resulted 02/25/25 17:17 Blood Blood Culture - Preliminary NO GROWTH AFTER 72 HOURS OF INCUBATION. Resulted Problem List/Assessment/Plan Problem List/Assessment/Plan Acute kidney injury secondary to hemodynamic mediated, FeNa < 1% Metabolic acidosis Colitis Dehydration Sepsis Vitamin-D deficiency recs ivf continue k replace Plan discussed with: Patient My Orders My Orders Orders - CHICHO GONG MD Procedure Category Date Status Time Strict I & O YENI 03/02/25 In Process 15:26 Dietary Evaluation Review Comments: Nutrition Recommendation: 1) Advance to [facility] 60gm + 2gm Na diet as medically feasible 2) Consider Ensure clear 240ml TID 3) Consider vitamin B12 & folate supplements Expected Outcomes/Goals: To meet >75% estimated needs Lab values to improve Fu 2-3 days CHICHO GONG MD Mar 02, 2025 16:38
[2025-03-02] MEDS: AMPICILLIN INJ 500 MG in SODIUM CHL 0.9% 50 ML IV SCH (18:19)
[2025-03-02] MEDS: METOPROLOL TARTRATE 25 MG TAB PO SCH (22:01)
[2025-03-03] VITALS (10 sets, daily range): BP systolic 148–166; BP diastolic 78–95; PULSE 51–68; RESP 16–20; TEMP 97.5–98.9; O2SAT 97–99
[2025-03-03] MEDS: SODIUM BICARB 8.4% 50Meq/50ml SYR Vial IV ONE (03:11)
[2025-03-03 06:02] LABS: Hemoglobin 12.3 g/dL (13.5-17.5); Nucleated Red Blood Cells % 0.1 %
[2025-03-03 06:04] LABS: Hematocrit 34.4 % (41.0-53.0); Mean Corpuscular Hemoglobin 35.1 pg (28.0-32.0); Mean Corpuscular Volume 98.1 fL (80.0-100.0)
[2025-03-03 06:10] LABS: Anion Gap 10 (5-15); Carbon Dioxide 21 mmol/L (20-31); Sodium 142 mmol/L (136-145)
[2025-03-03 06:16] LABS: BUN/Creatinine Ratio 9.9 (10.0-20.0); Glucose 97 mg/dL (74-106)
[2025-03-03 06:25] LABS: Blood Urea Nitrogen 26 mg/dL (9-23); Calcium 8.0 mg/dL (8.7-10.4); Chloride 111 mmol/L (98-107); Potassium 3.5 mmol/L (3.5-5.1)
--- NOTE | 2025-03-03 16:13 | DVHPN2 ---
Progress Note Date Seen: Mar 03, 2025 Medical Necessity Reason Pt with a Central, PICC or Fol: No Subjective Patient reports: No new complaints Review of Systems: Deferred Objective vital signs Vital Sign Date Time Temp Pulse Resp B/P (MAP) Pulse Ox O2 Delivery O2 Flow Rate FiO2 03/03/25 12:31 97.5 59 18 155/78 (103) 98 97.5 03/03/25 07:30 Room Air* 0 21 Total Intake and Output 03/02/25 03/02/25 03/03/25 15:00 23:00 07:00 Intake Total 2400 ml 700 ml Balance 2400 ml 700 ml medications Current Medications Medications Dose Ordered Sig/Kaylah Route Start Time Stop Time Status Last Admin Dose Admin Acetaminophen 650 mg Q6HP PRN PO 02/26/25 07:15 03/02/25 08:31 650 MG Ergocalciferol 50,000 unit Q7D PO 02/27/25 14:15 02/27/25 15:36 50,000 UNIT Nystatin 5 ml QID MT 02/28/25 12:00 03/03/25 12:00 5 ML Sodium Bicarbonate 50 ml/ Sodium Chloride 1,050 ml @ 120 mls/hr [id number] IV 03/01/25 13:30 03/03/25 00:33 120 MLS/HR Metoprolol Tartrate 25 mg BID PO 03/02/25 22:00 03/03/25 09:36 25 MG Amlodipine Besylate 5 mg DAILY PO 03/03/25 10:00 03/03/25 09:36 5 MG Ampicillin Sodium 500 mg/Sodium Chloride 50 ml @ 100 mls/hr Q6HR IV 03/02/25 18:00 03/03/25 12:04 100 MLS/HR laboratory and microbiology Laboratory Tests 03/03/25 02:52 Test 03/03/25 02:52 Range/Units Serum Glucose 97 74-106 mg/dL Microbiology Date/Time Source Procedure Growth Status 02/27/25 02:00 Nose MRSA Screen - Final Complete 02/25/25 23:40 Stool Stool Culture - Preliminary Salmonella species Resulted 02/25/25 23:40 Stool Shiga Toxin I & II - Final Resulted 02/25/25 23:40 Stool Clostridium difficile Toxin Assay - Final Resulted 02/25/25 17:17 Blood Blood Culture - Final NO GROWTH AFTER 5 DAYS OF INCUBATION. Complete Problem List/Assessment/Plan Problem List/Assessment/Plan Acute kidney injury secondary to hemodynamic mediated, FeNa < 1% Metabolic acidosis Colitis Dehydration Sepsis Vitamin-D deficiency recs ivf continue k replace switch to LR improving renal function Plan discussed with: Patient Dietary Evaluation Review Comments: Nutrition Recommendation: 1) Advance to [facility] 60gm + 2gm Na diet as medically feasible 2) Consider Ensure clear 240ml TID 3) Consider vitamin B12 & folate supplements Expected Outcomes/Goals: To meet >75% estimated needs Lab values to improve Fu 2-3 days CHICHO GONG MD Mar 03, 2025 16:13
[2025-03-03] MEDS: LACTATED RINGER'S 1,000 ML IV SCH (16:47)
--- NOTE | 2025-03-03 17:58 | DVHPNRES ---
Progress Note Date Seen: Mar 03, 2025 Resident Creating Document: CHEVY COLMENARES RESIDENT Medical Necessity Reason Pt with a Central, PICC or Fol: No Subjective Review of Systems Todd Day is a 64-year-old male with a known medical history of hypertension and hepatic hemangioma who presented with complaints of persistent nausea, repeated episodes of vomiting, diarrhea, headache, and generalized weakness that have persisted over the past three days. He reports experiencing . These symptoms are accompanied by fever and shortness of breath. Patient had colonoscopy week ago and came to [facility] 3 days ago. Since came to [facility] she had loose stool associated with abdominal pain. Spoke to daughter (Avani), his father went to restroom every 1-2 hour for last 2 days. Patient also fever for same duration. Past Medical History (PMH): hypertension and hepatic hemangioma Past Surgical History (PSH): Denies past surgical history Family history (FH): Nothing contributory EtOH: Denies alcohol use Smoking /Vaping: Denies Recreational Drugs: Denies Residence: Lives with daughter Home Medications: Bisoprolol, candesartan Allergies: No known allergies PCP: No PCP. The patient was seen and examined at bedside. He reports having mild abdominal pain. He denies any chest pain, shortness of breath, fever or any other complaints today. Objective vital signs Vital Sign Date Time Temp Pulse Resp B/P (MAP) Pulse Ox O2 Delivery O2 Flow Rate FiO2 03/03/25 17:00 97.6 51 18 149/79 (102) 98 97.6 03/03/25 07:30 Room Air* 0 21 Total Intake and Output 03/02/25 03/02/25 03/03/25 15:00 23:00 07:00 Intake Total 2400 ml 700 ml Balance 2400 ml 700 ml medications Current Medications Medications Dose Ordered Sig/Kaylah Route Start Time Stop Time Status Last Admin Dose Admin Acetaminophen 650 mg Q6HP PRN PO 02/26/25 07:15 03/02/25 08:31 650 MG Ergocalciferol 50,000 unit Q7D PO 02/27/25 14:15 02/27/25 15:36 50,000 UNIT Nystatin 5 ml QID MT 02/28/25 12:00 03/03/25 17:48 5 ML Metoprolol Tartrate 25 mg BID PO 03/02/25 22:00 03/03/25 09:36 25 MG Amlodipine Besylate 5 mg DAILY PO 03/03/25 10:00 03/03/25 09:36 5 MG Ampicillin Sodium 500 mg/Sodium Chloride 50 ml @ 100 mls/hr Q6HR IV 03/02/25 18:00 03/03/25 17:48 100 MLS/HR Lactated Ringer's 1,000 ml @ 75 mls/hr [id number] IV 03/03/25 16:15 03/03/25 16:47 75 MLS/HR Examination Examination General Appearance: Alert, Oriented X3, Cooperative, No acute distress HEENT: Atraumatic, PERRLA, EOMI, Mucous membrane moist/pink Respiratory: Clear to auscultation, Normal air movement Cardiovascular: Regular rate, Normal S1, Normal S2, No murmurs, no chest wall tenderness Abdominal: Normal bowel sounds, Soft, nontender abdomen on palpation Extremities: No clubbing, No cyanosis, No edema, Normal pulses, No tenderness/swelling Skin: No rashes, No breakdown, No significant lesion Neuro: Normal gait, Normal speech, Strength at 5/5 X4 ext, Normal tone, Sensation intact, Cranial nerves 3-12 NL, Reflexes 2+ Psych/Mental Status: Mental status NL, Mood NL laboratory and microbiology Laboratory Tests 03/03/25 02:52 Test 03/03/25 02:52 Range/Units Serum Glucose 97 74-106 mg/dL Microbiology Date/Time Source Procedure Growth Status 02/27/25 02:00 Nose MRSA Screen - Final Complete 02/25/25 23:40 Stool Stool Culture - Preliminary Salmonella species Resulted 02/25/25 23:40 Stool Shiga Toxin I & II - Final Resulted 02/25/25 23:40 Stool Clostridium difficile Toxin Assay - Final Resulted 02/25/25 17:17 Blood Blood Culture - Final NO GROWTH AFTER 5 DAYS OF INCUBATION. Complete Labs and/or images reviewed: Labs reviewed by me, Image(s) reviewed by me Problem List/Assessment/Plan Problem List/Assessment/Plan # Sepsis due to colitis #Gastroenteritis likely viral or bacterial #Traveler's diarrhea # questionable hemolytic uremic syndrome - IV fluids - IV Zosyn switch to empiric antibiotic ceftriaxone and Flagyl - Follow stool WBC, culture, blood -lactic acid level 2.2> 2.1> 2.5> 1.7 -LDH 156, thrombocytopenia -blood culture x2 no growth - Clostridium difficile/shiga toxin-negative -Nephrology consult -nasal MRSA-negative -monitor vital #Neutropenia WBC count 1.5>2.0>2.6>4.0 Continue empiric antibiotic CBC WILMER due to dehydration Creatinine 2.37>3.02>3.08>3.37>3.27 FeNa- 1.4% IVF Encouraged oral hydration BMP Avoid nephrotoxic drugs Post void bladder scan 22 ml # Macrocytic anemia due to vitamin B12 deficiency Vitamin B12 level 71 Vitamin B12 injection given 02/27/2025 # Essential hypertension -home medication: Bisoprolol Current blood pressure soft Metoprolol 50 mg bid #Thrombocytopenia No signs symptoms of active bleeding CBC # vitamin-D deficiency vitamin-D level 10.4 vitamin-D 96444 units p.o. Q weekly # pre-diabetes hemoglobin A1c 5.8 # hyperthyroidism THS 0.53 Normal T3 and free T4 # hypokalemia Resolved # lactic acidosis lactic acid level 2.2> 2.1> 2.5> 1.7 #History of Hepatic hemangioma - Likely resolved, CT shows Normal hepatic size without suspicious focal lesion. - Follow-up with PCP as outpatient after discharge # history of recent colonoscopy Colonoscopy report normal as per patient family members #Thrombocytopenia No signs symptoms of active bleeding, monitor CBC # Obesity, BMI 30.1 Lifestyle modification Goals of care discussions. More than 22 minute spent with patient. Case discussed with Dr. Flores Plan discussed with: Patient (Nurse), Spouse Plan discussed with: Patient, Other (RN) Dietary Evaluation Review Comments: Nutrition Recommendation: 1) Advance to [facility] 60gm + 2gm Na diet as medically feasible 2) Consider Ensure clear 240ml TID 3) Consider vitamin B12 & folate supplements Expected Outcomes/Goals: To meet >75% estimated needs Lab values to improve Fu 2-3 days Date of Service: Mar 03, 2025 Billing Provider: JOSE FLORES MD Common Visit Codes: [id number] INP/OBS CARE(HIGH) DARRIANCHEVY RESIDENT Mar 03, 2025 17:58 JOSE FLORES MD Mar 04, 2025 09:08
[2025-03-04] VITALS (8 sets, daily range): BP systolic 140–167; BP diastolic 73–91; PULSE 51–60; RESP 16–20; TEMP 97.4–98.4; O2SAT 97–99
[2025-03-04 11:00] LABS: Nucleated Red Blood Cells % 0.0 %
[2025-03-04 11:02] LABS: Hematocrit 37.0 % (41.0-53.0); Hemoglobin 12.8 g/dL (13.5-17.5); Mean Corpuscular Hemoglobin 34.4 pg (28.0-32.0); Mean Corpuscular Volume 99.2 fL (80.0-100.0)
[2025-03-04 11:45] LABS: Albumin 3.4 g/dL (3.2-4.8); Alkaline Phosphatase 66 U/L (46-116); Anion Gap 9 (5-15); BUN/Creatinine Ratio 9.6 (10.0-20.0); Blood Urea Nitrogen 22 mg/dL (9-23); Carbon Dioxide 28 mmol/L (20-31); Potassium 3.7 mmol/L (3.5-5.1)
[2025-03-04 11:46] LABS: Bilirubin, Total 0.5 mg/dL (0.2-1.0)
[2025-03-04 11:49] LABS: Chloride 108 mmol/L (98-107); Sodium 145 mmol/L (136-145)
[2025-03-04 11:50] LABS: Alanine Aminotransferase 98 U/L (7-40); Calcium 8.2 mg/dL (8.7-10.4); Total Protein 5.7 g/dL (5.7-8.2)
[2025-03-04 12:16] LABS: Glucose 114 mg/dL (74-106)
--- NOTE | 2025-03-04 15:58 | DVHPNRES ---
Progress Note Date Seen: Mar 04, 2025 Resident Creating Document: FRANCISCO ROMANO RESIDENT Medical Necessity Reason Pt with a Central, PICC or Fol: No Subjective Review of Systems Todd Day is a 64-year-old male with a known medical history of hypertension and hepatic hemangioma who presented with complaints of persistent nausea, repeated episodes of vomiting, diarrhea, headache, and generalized weakness that have persisted over the past three days. He reports experiencing . These symptoms are accompanied by fever and shortness of breath. Patient had colonoscopy week ago and came to [facility] 3 days ago. Since came to [facility] she had loose stool associated with abdominal pain. Spoke to daughter (Avani), his father went to restroo every 1-2 hour for last 2 days. Patient also fever for same duration. Past Medical History (PMH): hypertension and hepatic hemangioma Past Surgical History (PSH): Denies past surgical history Family history (FH): Nothing contributory EtOH: Denies alcohol use Smoking /Vaping: Denies Recreational Drugs: Denies Residence: Lives with daughter Home Medications: Bisoprolol, candesartan Allergies: No known allergies PCP: No PCP. N/C and evaluated in bedside today. Patient currently denies any symptoms like abdominal pain, chest, pain, dysuria on or any other acute distress. Labs review creatinine still in upper side. NSS 500 cc bolus. Monitor BMP Nephrology consult appreciated. No acute event overnight. Spoke to daughter (Avani) doublet current management plan. Objective vital signs Vital Sign Date Time Temp Pulse Resp B/P (MAP) Pulse Ox O2 Delivery O2 Flow Rate FiO2 03/04/25 13:00 97.4 57 18 167/82 (110) 98 97.4 03/04/25 08:00 Room Air* 0 21 Total Intake and Output 03/03/25 03/03/25 03/04/25 15:00 23:00 07:00 Intake Total 900 ml 800 ml Balance 900 ml 800 ml medications Current Medications Medications Dose Ordered Sig/Kaylah Route Start Time Stop Time Status Last Admin Dose Admin Acetaminophen 650 mg Q6HP PRN PO 02/26/25 07:15 03/02/25 08:31 650 MG Ergocalciferol 50,000 unit Q7D PO 02/27/25 14:15 02/27/25 15:36 50,000 UNIT Metoprolol Tartrate 25 mg BID PO 03/02/25 22:00 03/04/25 09:49 25 MG Amlodipine Besylate 5 mg DAILY PO 03/03/25 10:00 03/04/25 09:50 5 MG Ampicillin Sodium 500 mg/Sodium Chloride 50 ml @ 100 mls/hr Q6HR IV 03/02/25 18:00 03/04/25 11:33 100 MLS/HR Lactated Ringer's 1,000 ml @ 75 mls/hr [id number] IV 03/03/25 16:15 03/04/25 05:35 75 MLS/HR Examination General Appearance: Alert, Oriented X3, Cooperative, No acute distress HEENT: Atraumatic, PERRLA, EOMI, Mucous membrane moist/pink Respiratory: Clear to auscultation, Normal air movement Cardiovascular: Regular rate, Normal S1, Normal S2, No murmurs, no chest wall tenderness Abdominal: Abdomen is soft nontender, bowel sounds present Extremities: No clubbing, No cyanosis, No edema, Normal pulses, No tenderness/swelling Skin: No rashes, No breakdown, No significant lesion Neuro: Normal gait, Normal speech, Strength at 5/5 X4 ext, Normal tone, Sensation intact, Cranial nerves 3-12 NL, Reflexes 2+ Psych/Mental Status: Mental status NL, Mood NL laboratory and microbiology Laboratory Tests 03/04/25 10:50 Test 03/04/25 10:50 Range/Units Serum Glucose 114 H 74-106 mg/dL Microbiology Date/Time Source Procedure Growth Status 02/27/25 02:00 Nose MRSA Screen - Final Complete 02/25/25 23:40 Stool Stool Culture - Preliminary Salmonella species Resulted 02/25/25 23:40 Stool Shiga Toxin I & II - Final Resulted 02/25/25 23:40 Stool Clostridium difficile Toxin Assay - Final Resulted 02/25/25 17:17 Blood Blood Culture - Final NO GROWTH AFTER 5 DAYS OF INCUBATION. Complete Problem List/Assessment/Plan Problem List/Assessment/Plan # Typhoid fever # Sepsis due to colitis #Gastroenteritis likely viral or bacterial #Traveler's diarrhea # questionable hemolytic uremic syndrome - IV fluids -continue ampicillin IV antibiotic ( previously on Zosyn, ceftriaxone and Flagyl) -stool for positive for Salmonella C diff/shiga toxin/Campylobacter-negative -Lactic acid level 2.2> 2.1> 2.5> 1.7 -LDH 156, thrombocytopenia -Blood culture x2 no growth - Clostridium difficile/shiga toxin-negative -Nephrology consult APPRECIATED -nasal MRSA-negative -monitor vital #Neutropenia Neutropenia resolved Continue empiric antibiotic CBC # Transaminitis AST 94, ALT 98, total bilirubin 0.5 avoid hepatotoxic drugs MONITOR LFT #WILMER due to dehydration Creatinine 2.37>3.02>3.08>3.37>3.27>3.05>2.63>2.28 FeNa- 1.4% IVF Encouraged oral hydration BMP Avoid nephrotoxic drugs # Macrocytic anemia due to vitamin B12 deficiency Vitamin B12 level 71 Vitamin B12 injection given 02/27/2025 # Essential hypertension -home medication: Bisoprolol Current blood pressure soft Metoprolol 25 mg b.i.d. Amlodipine 5 mg daily #Thrombocytopenia No signs symptoms of active bleeding CBC # Vitamin-D deficiency vitamin-D level 10.4 vitamin-D 65413 units p.o. Q weekly # Pre-diabetes hemoglobin A1c 5.8 # Asymptomatic Hyperthyroidism THS 0.53 Normal T3 and free T4 # Hypokalemia Resolved # Lactic acidosis lactic acid level 2.2> 2.1> 2.5> 1.7 #History of Hepatic hemangioma - Likely resolved, CT shows Normal hepatic size without suspicious focal lesion. - Follow-up with PCP as outpatient after discharge # History of recent colonoscopy Colonoscopy report normal as per patient family members #Thrombocytopenia No signs symptoms of active bleeding, monitor CBC # Obesity, BMI 30.1 Lifestyle modification Goals of care discussions. More than 19 minute spent with patient. Case discussed with Dr. Flores Plan discussed with: Patient, Daughter, Other (Nurse) My Orders My Orders Orders - FRANCISCO ROMANO RESIDENT Procedure Category Date Status Time Basic Metabolic Panel LAB 03/05/25 Verified 04:00 Complete Blood Count LAB 03/05/25 Verified 04:00 NS PHA 03/04/25 Transmitted 16:00 Dietary Evaluation Review Comments: Nutrition Recommendation: 1) [facility] 2gm Na diet as medically feasible 2) Consider Ensure clear 240ml TID 3) Consider vitamin B12 & folate supplements Expected Outcomes/Goals: To meet >75% estimated needs Lab values to improve Fu 2-3 days Date of Service: Mar 04, 2025 Billing Provider: JOSE FLORES MD Common Visit Codes: [id number] INP/OBS CARE(HIGH) FRANCISCO ROMANO RESIDENT Mar 04, 2025 15:58 JOSE FLORES MD Mar 04, 2025 23:30
[2025-03-04] MEDS: SODIUM CHLORIDE 0.9% 500 ML IV ONE (16:15)
--- NOTE | 2025-03-04 18:01 | DVHPN2 ---
Progress Note Date Seen: Mar 04, 2025 Medical Necessity Reason Pt with a Central, PICC or Fol: No Subjective Patient reports: No new complaints, Feels better Review of Systems: HEENT:Normal, CVS:Normal, RESPIRATORY:Normal, GI:Abnormal (Mild lower abdominal pain), :Normal, MSK:Normal, NEURO:Normal Objective vital signs Vital Sign Date Time Temp Pulse Resp B/P (MAP) Pulse Ox O2 Delivery O2 Flow Rate FiO2 03/04/25 16:37 97.8 52 18 166/73 (104) 97 97.8 03/04/25 08:00 Room Air* 0 21 Total Intake and Output 03/03/25 03/03/25 03/04/25 14:59 22:59 06:59 Intake Total 900 ml 800 ml Balance 900 ml 800 ml medications Current Medications Medications Dose Ordered Sig/Kaylah Route Start Time Stop Time Status Last Admin Dose Admin Ergocalciferol 50,000 unit Q7D PO 02/27/25 14:15 02/27/25 15:36 50,000 UNIT Metoprolol Tartrate 25 mg BID PO 03/02/25 22:00 03/04/25 09:49 25 MG Amlodipine Besylate 5 mg DAILY PO 03/03/25 10:00 03/04/25 09:50 5 MG Ampicillin Sodium 500 mg/Sodium Chloride 50 ml @ 100 mls/hr Q6HR IV 03/02/25 18:00 03/04/25 17:12 100 MLS/HR Lactated Ringer's 1,000 ml @ 75 mls/hr [id number] IV 03/03/25 16:15 03/04/25 05:35 75 MLS/HR Examination: GENERAL:Normal, HEENT:Normal, NECK:Normal, LUNGS:Normal, CVS:Normal, ABDOMEN:Normal, MSK:Normal, SKIN:Normal, NEURO:Normal, :Normal laboratory and microbiology Laboratory Tests 03/04/25 10:50 Test 03/04/25 10:50 Range/Units Serum Glucose 114 H 74-106 mg/dL Microbiology Date/Time Source Procedure Growth Status 02/27/25 02:00 Nose MRSA Screen - Final Complete 02/25/25 23:40 Stool Stool Culture - Preliminary Salmonella species Resulted 02/25/25 23:40 Stool Shiga Toxin I & II - Final Resulted 02/25/25 23:40 Stool Clostridium difficile Toxin Assay - Final Resulted 02/25/25 17:17 Blood Blood Culture - Final NO GROWTH AFTER 5 DAYS OF INCUBATION. Complete Problem List/Assessment/Plan Problem List/Assessment/Plan Acute kidney injury secondary to hemodynamic mediated, FeNa < 1% Metabolic acidosis Colitis Dehydration Sepsis Vitamin-D deficiency recs ivf continue k replace switch to LR improving renal function Plan discussed with: Patient, Spouse Dietary Evaluation Review Comments: Nutrition Recommendation: 1) [facility] + 2gm Na diet as medically feasible 2) Consider Ensure clear 240ml TID 3) Consider vitamin B12 & folate supplements Expected Outcomes/Goals: To meet >75% estimated needs Lab values to improve Fu 2-3 days CHICHO GONG MD Mar 04, 2025 18:01
[2025-03-05] VITALS (8 sets, daily range): BP systolic 137–155; BP diastolic 80–90; PULSE 54–66; RESP 16–19; TEMP 97.1–98.3; O2SAT 95–99
[2025-03-05 07:14] LABS: Hematocrit 32.8 % (41.0-53.0); Hemoglobin 11.6 g/dL (13.5-17.5); Mean Corpuscular Hemoglobin 34.8 pg (28.0-32.0); Mean Corpuscular Volume 98.8 fL (80.0-100.0); Nucleated Red Blood Cells % 0.1 %
[2025-03-05 07:20] LABS: Anion Gap 11 (5-15); Carbon Dioxide 27 mmol/L (20-31)
[2025-03-05 07:26] LABS: BUN/Creatinine Ratio 7.2 (10.0-20.0); Blood Urea Nitrogen 14 mg/dL (9-23); Glucose 98 mg/dL (74-106)
[2025-03-05 07:38] LABS: Calcium 8.3 mg/dL (8.7-10.4); Chloride 109 mmol/L (98-107); Potassium 3.1 mmol/L (3.5-5.1); Sodium 147 mmol/L (136-145)
--- NOTE | 2025-03-05 09:04 | DVHPN2 ---
Progress Note Date Seen: Mar 05, 2025 Medical Necessity Reason Pt with a Central, PICC or Fol: Yes The following are medically ne: Central Line (HD catheter) Subjective Patient reports: Feels better Objective vital signs Vital Sign Date Time Temp Pulse Resp B/P (MAP) Pulse Ox O2 Delivery O2 Flow Rate FiO2 03/05/25 09:00 98.2 66 16 140/80 (100) 98 98.2 03/05/25 08:00 Room Air* 0 21 Total Intake and Output 03/04/25 03/04/25 03/05/25 15:00 23:00 07:00 Intake Total 2030 ml 2040 ml Output Total 900 ml 5 ml Balance 1130 ml 2035 ml medications Current Medications Medications Dose Ordered Sig/Kaylah Route Start Time Stop Time Status Last Admin Dose Admin Ergocalciferol 50,000 unit Q7D PO 02/27/25 14:15 02/27/25 15:36 50,000 UNIT Metoprolol Tartrate 25 mg BID PO 03/02/25 22:00 03/04/25 21:14 25 MG Amlodipine Besylate 5 mg DAILY PO 03/03/25 10:00 03/04/25 09:50 5 MG Ampicillin Sodium 500 mg/Sodium Chloride 50 ml @ 100 mls/hr Q6HR IV 03/02/25 18:00 03/05/25 05:44 100 MLS/HR Lactated Ringer's 1,000 ml @ 75 mls/hr [id number] IV 03/03/25 16:15 03/04/25 23:22 75 MLS/HR Examination: GENERAL:Normal, SKIN:Abnormal laboratory and microbiology Laboratory Tests 03/05/25 05:59 Test 03/05/25 05:59 Range/Units Serum Glucose 98 74-106 mg/dL Microbiology Date/Time Source Procedure Growth Status 02/27/25 02:00 Nose MRSA Screen - Final Complete 02/25/25 23:40 Stool Stool Culture - Preliminary Salmonella species Resulted 02/25/25 23:40 Stool Shiga Toxin I & II - Final Resulted 02/25/25 23:40 Stool Clostridium difficile Toxin Assay - Final Resulted 02/25/25 17:17 Blood Blood Culture - Final NO GROWTH AFTER 5 DAYS OF INCUBATION. Complete Problem List/Assessment/Plan Problem List/Assessment/Plan Acute kidney injury secondary to hemodynamic mediated, FeNa < 1% hypokalemia/hypernatremia Colitis Dehydration Sepsis Vitamin-D deficiency hypertension denies nausea today, says has headache recs ivf continue change to 0.45%NACL k replace improving renal function elevated BP noted today , advance diet and switch to po so can come off fluids when able. spoke to daughter on speaker at bedside with patient Plan discussed with: Patient Dietary Evaluation Review Comments: Nutrition Recommendation: 1) Advance to [facility] 60gm + 2gm Na diet as medically feasible 2) Consider Ensure clear 240ml TID 3) Consider vitamin B12 & folate supplements Expected Outcomes/Goals: To meet >75% estimated needs Lab values to improve Fu 2-3 days Total Time (mins): 33 URI HALL MD Mar 05, 2025 09:04
[2025-03-05] MEDS: POTASSIUM CHL 20 Meq TABLET PO ONE (09:50)
[2025-03-05] MEDS: SODIUM CHLORIDE 0.9% 1,000 ML IV ONE (09:51)
[2025-03-05] MEDS: SOD CHL 0.45% 1,000 ML IV SCH (14:15)
--- NOTE | 2025-03-05 14:17 | DVHPNRES ---
Progress Note Date Seen: Mar 05, 2025 Resident Creating Document: TL CAMPBELL RESIDENT Medical Necessity Reason Pt with a Central, PICC or Fol: Yes The following are medically ne: Central Line (HD catheter) Subjective Review of Systems Todd Day is a 64-year-old male with a known medical history of hypertension and hepatic hemangioma who presented with complaints of persistent nausea, repeated episodes of vomiting, diarrhea, headache, and generalized weakness that have persisted over the past three days. He reports experiencing . These symptoms are accompanied by fever and shortness of breath. Patient had colonoscopy week ago and came to [facility] 3 days ago. Since came to [facility] she had loose stool associated with abdominal pain. Spoke to daughter (Avani), his father went to restroom every 1-2 hour for last 2 days. Patient also fever for same duration. Past Medical History (PMH): hypertension and hepatic hemangioma Past Surgical History (PSH): Denies past surgical history Family history (FH): Nothing contributory EtOH: Denies alcohol use Smoking /Vaping: Denies Recreational Drugs: Denies Residence: Lives with daughter Home Medications: Bisoprolol, candesartan Allergies: No known allergies PCP: No PCP. Patient was seen today at bedside. Labs and chart reviewed. Hypokalemia replenished. Patient reported feeling better today, abdominal pain is improving. No diarrhea yesterday. Stool culture positive for Salmonella. Patient is on ampicillin and tolerating well. Ordered IV fluid. contraction alkalosis. Diet to mechanical soft. Serum creatinine trending down. Nephrology recommendation reviewed and appreciated Objective vital signs Vital Sign Date Time Temp Pulse Resp B/P (MAP) Pulse Ox O2 Delivery O2 Flow Rate FiO2 03/05/25 12:42 98.1 61 18 137/82 (100) 99 98.1 03/05/25 08:00 Room Air* 0 21 Total Intake and Output 03/04/25 03/04/25 03/05/25 15:00 23:00 07:00 Intake Total 2030 ml 2040 ml Output Total 900 ml 5 ml Balance 1130 ml 2035 ml medications Current Medications Medications Dose Ordered Sig/Kaylah Route Start Time Stop Time Status Last Admin Dose Admin Ergocalciferol 50,000 unit Q7D PO 02/27/25 14:15 02/27/25 15:36 50,000 UNIT Metoprolol Tartrate 25 mg BID PO 03/02/25 22:00 03/05/25 09:51 25 MG Amlodipine Besylate 5 mg DAILY PO 03/03/25 10:00 03/05/25 09:51 5 MG Ampicillin Sodium 500 mg/Sodium Chloride 50 ml @ 100 mls/hr Q6HR IV 03/02/25 18:00 03/05/25 11:38 100 MLS/HR Sodium Chloride 1,000 ml @ 75 mls/hr [id number] IV 03/05/25 09:15 03/05/25 14:15 75 MLS/HR Examination General Appearance: Alert, Oriented X3, Cooperative, No acute distress HEENT: Atraumatic, PERRLA, EOMI, Mucous membrane moist/pink Respiratory: Clear to auscultation, Normal air movement Cardiovascular: Regular rate, Normal S1, Normal S2, No murmurs, no chest wall tenderness Abdominal: Abdomen is soft nontender, bowel sounds present Extremities: No clubbing, No cyanosis, No edema, Normal pulses, No tenderness/swelling Skin: No rashes, No breakdown, No significant lesion Neuro: Normal gait, Normal speech, Strength at 5/5 X4 ext, Normal tone, Sensation intact, Cranial nerves 3-12 NL, Reflexes 2+ Psych/Mental Status: Mental status NL, Mood NL laboratory and microbiology Laboratory Tests 03/05/25 05:59 Test 03/05/25 05:59 Range/Units Serum Glucose 98 74-106 mg/dL Microbiology Date/Time Source Procedure Growth Status 02/27/25 02:00 Nose MRSA Screen - Final Complete 02/25/25 23:40 Stool Stool Culture - Preliminary Salmonella species Resulted 02/25/25 23:40 Stool Shiga Toxin I & II - Final Resulted 02/25/25 23:40 Stool Clostridium difficile Toxin Assay - Final Resulted 02/25/25 17:17 Blood Blood Culture - Final NO GROWTH AFTER 5 DAYS OF INCUBATION. Complete Problem List/Assessment/Plan Problem List/Assessment/Plan Problem List/Assessment/Plan # acute gastroenteritis likely due to salmonella infection # Typhoid fever # Sepsis due to colitis #Gastroenteritis likely viral or bacterial #Traveler's diarrhea # questionable hemolytic uremic syndrome - IV fluids -continue ampicillin IV antibiotic ( previously on Zosyn, ceftriaxone and Flagyl) -stool for positive for Salmonella C diff/shiga toxin/Campylobacter-negative -Lactic acid level 2.2> 2.1> 2.5> 1.7 -LDH 156, thrombocytopenia -Blood culture x2 no growth - Clostridium difficile/shiga toxin-negative -Nephrology consult APPRECIATED -nasal MRSA-negative -monitor vital #Neutropenia Neutropenia resolved Continue empiric antibiotic CBC # Transaminitis AST 94, ALT 98, total bilirubin 0.5 avoid hepatotoxic drugs MONITOR LFT #WILMER due to dehydration Creatinine trending down FeNa- 1.4% IVF Encouraged oral hydration BMP Avoid nephrotoxic drugs # Macrocytic anemia due to vitamin B12 deficiency Vitamin B12 level 71 Vitamin B12 injection given 02/27/2025 # Essential hypertension -home medication: Bisoprolol Current blood pressure soft Metoprolol 25 mg b.i.d. Amlodipine 5 mg daily #Thrombocytopenia No signs symptoms of active bleeding CBC # Vitamin-D deficiency vitamin-D level 10.4 vitamin-D 68997 units p.o. Q weekly # Pre-diabetes hemoglobin A1c 5.8 # Asymptomatic Hyperthyroidism THS 0.53 Normal T3 and free T4 # Hypokalemia Resolved # Lactic acidosis lactic acid level 2.2> 2.1> 2.5> 1.7 #History of Hepatic hemangioma - Likely resolved, CT shows Normal hepatic size without suspicious focal lesion. - Follow-up with PCP as outpatient after discharge # History of recent colonoscopy Colonoscopy report normal as per patient family members #Thrombocytopenia No signs symptoms of active bleeding, monitor CBC # Obesity, BMI 30.1 Lifestyle modification Goals of care discussions. More than 19 minute spent with patient. Case discussed with Dr. Bermudez Plan discussed with: Patient, Daughter, Other (Nurse) Plan discussed with: Patient, Other (RN) My Orders My Orders Orders - TL CAMPBELL Procedure Category Date Status Time Mechanical Soft Diet DIET 03/05/25 Transmitted Lunch Dietary Evaluation Review Comments: Nutrition Recommendation: 1) [facility] + 2gm Na diet as medically feasible 2) Consider Ensure clear 240ml TID 3) Consider vitamin B12 & folate supplements Expected Outcomes/Goals: To meet >75% estimated needs Lab values to improve Fu 2-3 days Date of Service: Mar 05, 2025 Billing Provider: ROLLY BERMUDEZ MD Common Visit Codes: 75531-[id number] INP/OBS CARE(HIGH) TL CAMPBELL Mar 05, 2025 14:17 ROLLY BERMUDEZ MD Mar 08, 2025 13:46
[2025-03-05 15:19] LABS: Chloride 105 mmol/L (98-107); Potassium 3.7 mmol/L (3.5-5.1); Sodium 142 mmol/L (136-145)
[2025-03-05 15:20] LABS: Anion Gap 10 (5-15); Calcium 8.1 mg/dL (8.7-10.4); Carbon Dioxide 27 mmol/L (20-31)
[2025-03-05 15:25] LABS: BUN/Creatinine Ratio 7.6 (10.0-20.0); Blood Urea Nitrogen 14 mg/dL (9-23)
[2025-03-05 15:27] LABS: Glucose 137 mg/dL (74-106)
[2025-03-05] MEDS: POTASSIUM EFFERVESENT TAB 25 MEQ PO ONE (17:03)
[2025-03-05] MEDS: ACETAMINOPHEN 325 MG TAB PO ONE (23:14)
[2025-03-06 06:43] VITALS: BP 143/75; PULSE 61; RESP 18; TEMP 97.9; O2SAT 98
[2025-03-06 07:50] LABS: Hematocrit 32.0 % (41.0-53.0); Hemoglobin 11.5 g/dL (13.5-17.5); Mean Corpuscular Hemoglobin 35.0 pg (28.0-32.0); Mean Corpuscular Volume 97.8 fL (80.0-100.0); Nucleated Red Blood Cells % 0.1 %
[2025-03-06 08:00] VITALS: PULSE 67; PULSE 71; RESP 17
[2025-03-06 08:42] LABS: Carbon Dioxide 28 mmol/L (20-31)
[2025-03-06 08:46] LABS: Alkaline Phosphatase 60 U/L (46-116)
[2025-03-06 08:47] LABS: Glucose 105 mg/dL (74-106)
[2025-03-06 08:48] LABS: BUN/Creatinine Ratio 6.0 (10.0-20.0); Blood Urea Nitrogen 11 mg/dL (9-23); Magnesium 1.7 mg/dL (1.6-2.6)
[2025-03-06 08:49] LABS: Albumin 3.2 g/dL (3.2-4.8)
[2025-03-06 08:50] LABS: Bilirubin, Total 0.7 mg/dL (0.2-1.0)
[2025-03-06 08:54] LABS: Alanine Aminotransferase 81 U/L (7-40); Calcium 8.2 mg/dL (8.7-10.4); Total Protein 5.5 g/dL (5.7-8.2)
[2025-03-06 08:55] LABS: Anion Gap 11 (5-15); Chloride 106 mmol/L (98-107); Potassium 3.2 mmol/L (3.5-5.1); Sodium 145 mmol/L (136-145)
[2025-03-06 09:00] VITALS: BP 149/77; PULSE 67; RESP 17; TEMP 98.3; O2SAT 94
--- NOTE | 2025-03-06 10:28 | DVHPN2 ---
Progress Note Date Seen: Mar 06, 2025 Medical Necessity Reason Pt with a Central, PICC or Fol: No Subjective Patient reports: Feels better Objective vital signs Vital Sign Date Time Temp Pulse Resp B/P (MAP) Pulse Ox O2 Delivery O2 Flow Rate FiO2 03/06/25 09:18 67 149/77 03/06/25 09:00 98.3 17 94 98.3 03/05/25 20:10 Room Air* 0 21 Total Intake and Output 03/05/25 03/05/25 03/06/25 14:59 22:59 06:59 Intake Total 1490 ml 2700 ml 1400 ml Output Total 400 ml 1900 ml Balance 1490 ml 2300 ml -500 ml medications Current Medications Medications Dose Ordered Sig/Kaylah Route Start Time Stop Time Status Last Admin Dose Admin Ergocalciferol 50,000 unit Q7D PO 02/27/25 14:15 02/27/25 15:36 50,000 UNIT Metoprolol Tartrate 25 mg BID PO 03/02/25 22:00 03/06/25 09:18 25 MG Amlodipine Besylate 5 mg DAILY PO 03/03/25 10:00 03/06/25 09:17 5 MG Ampicillin Sodium 500 mg/Sodium Chloride 50 ml @ 100 mls/hr Q6HR IV 03/02/25 18:00 03/06/25 05:59 100 MLS/HR Examination: GENERAL:Normal laboratory and microbiology Laboratory Tests 03/06/25 07:02 Test 03/06/25 07:02 Range/Units Serum Glucose 105 74-106 mg/dL Microbiology Date/Time Source Procedure Growth Status 02/27/25 02:00 Nose MRSA Screen - Final Complete 02/25/25 23:40 Stool Stool Culture - Preliminary Salmonella species Resulted 02/25/25 23:40 Stool Shiga Toxin I & II - Final Resulted 02/25/25 23:40 Stool Clostridium difficile Toxin Assay - Final Resulted 02/25/25 17:17 Blood Blood Culture - Final NO GROWTH AFTER 5 DAYS OF INCUBATION. Complete Problem List/Assessment/Plan Problem List/Assessment/Plan Acute kidney injury secondary to hemodynamic mediated, FeNa < 1% hypokalemia/hypernatremia Colitis Dehydration Sepsis Vitamin-D deficiency hypertension says has headache start oral BP meds agree with stopping fluids po advancement as tolerated renal function is stable , has not returned to baseline but is acceptable for outpatient followup Will sign off case and arrange outpatient clinic Plan discussed with: Patient Dietary Evaluation Review Comments: Nutrition Recommendation: 1) [facility] Na diet as medically feasible 2) Consider Ensure clear 240ml TID 3) Consider vitamin B12 & folate supplements Expected Outcomes/Goals: To meet >75% estimated needs Lab values to improve Fu 2-3 days Total Time (mins): 33 URI HALL MD Mar 06, 2025 10:28
--- NOTE | 2025-03-06 10:29 | DVHDSRES ---
Discharge Summary Date of Admission Resident Creating Document: TL CAMPBELL Feb 25, 2025 at 21:39 Date of Discharge: Mar 06, 2025 Admitting Diagnosis Acute gastroenteritis likely bacterial Labs/Diagnostic Data: Laboratory Results Test 03/06/25 07:02 03/01/25 10:55 03/01/25 05:05 02/28/25 05:32 White Blood Count 4.8 10^3/uL (4.4-10.8) Red Blood Count 3.27 10^6/uL (4.5-5.90) Hemoglobin 11.5 g/dL (13.5-17.5) Hematocrit 32.0 % (41.0-53.0) Mean Corpuscular Volume 97.8 fL (80.0-100.0) Mean Corpuscular Hemoglobin 35.0 pg (28.0-32.0) Mean Corpuscular Hemoglobin Concent 35.8 g/dL (32.0-36.0) Red Cell Distribution Width 15.2 % (11.8-14.3) Platelet Count 275 10^3/uL (140-450) Mean Platelet Volume 8.8 fL (6.9-10.8) Neutrophils (%) (Auto) 63.6 % (37.0-80.0) Lymphocytes (%) (Auto) 21.6 % (10.0-50.0) Monocytes (%) (Auto) 12.3 % (0.0-12.0) Eosinophils (%) (Auto) 2.2 % (0.0-7.0) Basophils (%) (Auto) 0.3 % (0.0-2.0) Neutrophils # (Auto) 3.1 10 ^3/uL (1.6-8.6) Lymphocytes # (Auto) 1.0 10 ^3/uL (0.4-5.4) Monocytes # (Auto) 0.6 10 ^3/uL (0-1.3) Eosinophils # (Auto) 0.1 10 ^3/uL (0-0.8) Basophils # (Auto) 0 10 ^3/uL (0-0.2) Nucleated Red Blood Cells 0.1 % Sodium Level 145 mmol/L (136-145) Potassium Level 3.2 mmol/L (3.5-5.1) Chloride Level 106 mmol/L (98-107) Carbon Dioxide Level 28 mmol/L (20-31) Anion Gap 11 (5-15) Blood Urea Nitrogen 11 mg/dL (9-23) Creatinine 1.82 mg/dL (0.700-1.30) Glomerular Filtration Rate Calc 41 mL/min (>90) BUN/Creatinine Ratio 6.0 (10.0-20.0) Serum Glucose 105 mg/dL (74-106) Calcium Level 8.2 mg/dL (8.7-10.4) Magnesium Level 1.7 mg/dL (1.6-2.6) Total Bilirubin 0.7 mg/dL (0.2-1.0) Aspartate Amino Transferase (AST) 51 U/L (13-40) Alanine Aminotransferase (ALT) 81 U/L (7-40) Alkaline Phosphatase 60 U/L (46-116) Total Protein 5.5 g/dL (5.7-8.2) Albumin 3.2 g/dL (3.2-4.8) Urine Color Light-yellow (Yellow) Urine Clarity Clear (Clear) Urine pH 5.5 (5.0-9.0) Urine Specific Mellen 1.005 (1.001-1.035) Urine Protein Negative (Negative) Urine Ketones Negative (Negative) Urine Blood Trace /uL (Negative) Urine Nitrite Negative (Negative) Urine Bilirubin Negative (Negative) Urine Urobilinogen Normal mg/dL (Negative) Urine Leukocyte Esterase Negative /uL (Negative) Urine RBC <1 /hpf (0 - 3) Urine Microscopic WBC 1 /HPF (0-3) Urine Squamous Epithelial Cells None seen /hpf (<5) Urine Bacteria None seen /hpf (None Seen) Urine Osmolality 166 mOsm/kg Urine Creatinine 36.78 mg/dL (30.0-125.0) Urine Protein/Creatinine Ratio 0.17 Urine Sodium 22 mmol/L (40-220) Urine Potassium 6 mmol/L (12-62) Urine Glucose Normal mg/dL (Normal) Urine Total Protein < 6.0 mg/dL (1-14) Differential Total Cells Counted 100.0 (100) Neutrophils % (Manual) 56 (37.0-80.0) Band Neutrophils % (Manual) 3 Lymphocytes % (Manual) 23 (10.0-50.0) Monocytes % (Manual) 18 (0-12) Eosinophils % (Manual) 0 (0-7) Basophils % (Manual) 0 (0.0-2.0) Metamyelocytes % (manual) 0 Myelocytes % (Manual) 0 Promyelocytes % (Manual) 0 Blast Cells % (Manual) 0 Reactive Lymphocytes 0 Platelet Estimate Decreased Anisocytosis (manual) Slight Macrocytosis Slight Lactate Dehydrogenase 259 U/L (120-246) Free Thyroxine (T4) Calculated 1.25 ng/dL (0.89-1.76) Total Triiodothyronine (TT3) 0.91 ng/mL (0.60-1.81) Phosphorus Level 3.2 mg/dL (2.4-5.1) Test 02/27/25 10:09 02/26/25 23:30 02/26/25 07:27 02/26/25 06:21 Triglycerides Level 193 mg/dL (< 150) Cholesterol Level 113 mg/dL (< 200) LDL Cholesterol 55 mg/dL (< 100) HDL Cholesterol 24 mg/dL (40-59) Vitamin B12 Level 71 pg/mL (211-911) Vitamin D 25-Hydroxy 11.8 ng/mL (30.0-100) Folic Acid 19.89 ng/mL (>5.38) Random Vancomycin Level 9.8 ug/mL (5-10) Stool for White Cells None seen Lactic Acid Level 1.7 mmol/L (0.4-2.0) Hemoglobin A1c 5.8 % A1C (<5.7) Thyroid Stimulating Hormone (TSH) 0.53 uIU/mL (0.55-4.78) Test 02/25/25 23:40 02/25/25 19:14 02/25/25 16:48 02/25/25 13:32 Stool Occult Blood Positive (Negative) Stool Occult Blood Sample #3 (Negative) Direct Bilirubin 0.2 mg/dL (<0.3) Urine Amorphous Crystals Mod /hpf (None Seen) SARS-CoV-2 Antigen (Rapid) Negative (NEGATIVE) Test 02/25/25 12:03 Troponin I High Sensitivity 5 ng/L (</=54) Other Laboratory Tests 03/06/25 07:02 Brief Hx & Hospital Course: Inder Day is a 64-year-old male with a known medical history of hypertension and hepatic hemangioma who presented with complaints of persistent nausea, repeated episodes of vomiting, diarrhea, headache, and generalized weakness that have persisted over the past three days. He reports experiencing . These symptoms are accompanied by fever and shortness of breath. Patient had colonoscopy week ago and came to [facility] 3 days ago. Since came to [facility] she had loose stool associated with abdominal pain. Spoke to daughter (Avani), his father went to restroom every 1-2 hour for last 2 days. Patient also fever for same duration. Culture revealed some salmonella species. Blood culture no growth. Patient was treated with ampicillin, symptoms seem to. Patient's hospital course was complicated by WILMER. WILMER improved. Patient was seen by technical proposal writer. Nephrology recommended to follow up outpatient with the Nephrology in 1-2 weeks. Patient is being discharged home with oral ampicillin 500 mg q.i.d. for 5 days. Patient was advised to follow up with the primary care physician in 1 week. Patient's meds were sent to the pharmacy electronically. Patient was hemodynamically stable on discharge. Operations or Procedures [place] [id number] Ph: [phone] DIAGNOSTIC IMAGING Diagnostic Imaging Report : [id number] Signed PATIENT: INDER DAY RACCT: [id number] UNIT: [id number] : 1960 LOC: ER ROOM / BED: / AGE / SEX: 64 / M ADM STATUS: REG ER SERVICE [id number] ORDERING PHYSICIAN: IKER HU MD PROCEDURE(s): ABPL - CT AB PEL WO CON-NO ORAL OR IV REASON: colitis ORDER NUMBER(s): [id number], ACCESSION NUMBER(s): [id number] EXAM: CT CT AB PEL WO CON-NO ORAL OR IV INDICATION: colitis TECHNIQUE: Volumetric multidetector CT images of the abdomen and pelvis were obtained without contrast. All CT scans at this facility use dose modulation, iterative reconstruction, and/or weight based dosing when appropriate to reduce radiation dose to as low as reasonably achievable. COMPARISON: None FINDINGS: [LOWER CHEST]: The partially visualized lung bases are clear without a pleural effusion. The cardiac size is normal without pericardial effusion. [LIVER]: Normal hepatic size without suspicious focal lesion. [GALLBLADDER AND BILIARY TREE]: No cholelithiasis. [SPLEEN]: Unremarkable. [PANCREAS]: Unremarkable. [ADRENAL GLANDS]: Unremarkable [KIDNEYS]: No hydronephrosis. No nephroureterolithiasis. [BLADDER]: Unremarkable for the degree distention. [REPRODUCTIVE ORGANS]: Unremarkable. [BOWEL/MESENTERY]: Air-fluid level of the stomach. Fluid throughout the colon. Correlate for loose stool. Slight fluid distention of multiple small bowel loops. [ASCITES]: Absent [LYMPHADENOPATHY]: No pathologically enlarged lymph nodes by CT size criteria [VASCULATURE]: No aneurysmal dilatation. [ABDOMINAL WALL]: Trace fat containing right inguinal hernia [MUSCULOSKELETAL]: No acute fracture or aggressive focal osseous lesion. IMPRESSION: 1. Fluid throughout the colon and small bowel. 2. Correlate for diarrhea sequelae of enteric colitis. 3. No CT evidence of bowel obstruction. ATED BY: USMAN WANG MD DICTATED DATE/TIME: 02/25/251715 SIGNED BY: USMAN WANG MD SIGNED DATE/TIME: 02/25/251715 CC: [place] [id number] Ph: [phone] DIAGNOSTIC IMAGING Diagnostic Imaging Report : [id number] Signed PATIENT: INDER DAY RACCT: [id number] UNIT: [id number] : 1960 LOC: [facility] ROOM / BED: [facility] / A AGE / SEX: 64 / M ADM STATUS: ADM IN SERVICE 1123 ORDERING PHYSICIAN: FRANCISCO ROMANO RESIDENT PROCEDURE(s): KIDUS - KIDNEY REASON: WILMER ORDER NUMBER(s): [id number], ACCESSION NUMBER(s): [id number] INDICATION: WILMER TECHNIQUE: Multiple real-time sonographic images of the kidneys and bladder were obtained. COMPARISON: None FINDINGS: The right kidney measures 13 cm in length, which is normal in size. There is normal echogenicity of the right kidney. No hydronephrosis. The left kidney measures 13 cm in length, which is normal in size. There is normal echogenicity of the left kidney. No hydronephrosis. No large intraluminal masses are seen in the bladder. IMPRESSION: 1. Normal sonographic appearance of the kidneys. No hydronephrosis. ATED BY: USMAN WANG MD DICTATED DATE/TIME: 03/01/25 125 SIGNED BY: USMAN WANG MD SIGNED DATE/TIME: 03/01/251251 CC: Condition at Discharge: Stable Final Diagnosis/Problems List #acute gastroenteritis due to salmonella infection # Typhoid fever # Sepsis due to colitis #Gastroenteritis likely viral or bacterial #Traveler's diarrhea # questionable hemolytic uremic syndrome #Neutropenia # Transaminitis #WILMER due to dehydration # Macrocytic anemia due to vitamin B12 deficiency # Essential hypertension #Thrombocytopenia # Vitamin-D deficiency # Pre-diabetes # Asymptomatic Hyperthyroidism # Hypokalemia # Lactic acidosis #History of Hepatic hemangioma # History of recent colonoscopy #Thrombocytopenia # Obesity, BMI 30.1 Discharge Disposition: Home Discharge Instruct/Medications Diet: Consistent carbohydrate, Cardiac 2g Na,low cholest Follow Up/Referral: Please follow up with the primary care physician in 1-2 weeks Please drink plenty of water to maintain well hydration, avoid dehydration Please follow up with the Nephrology in 1-2 weeks for further evaluation and care. Medications: Ampicillin 500 mg 5 times a day for 5 days Metoprolol 25 mg p.o. b.i.d. Amlodipine 5 mg p.o. daily Vitamin-D 69628 units q.week Famotidine 20 mg p.o. daily Scheduled Amlodipine Besylate (Norvasc Tablet), 1 TAB PO DAILY Ampicillin (Ampicillin), 500 MG PO QID Ergocalciferol (Vitamin D 37721 Unit), 50,000 UNIT PO QWEEKLY Famotidine (Famotidine), 20 MG PO DAILY Metoprolol Tartrate (Metoprolol Tartrate), 1 TAB PO BID Discharge Statement: "Patient was advised to return to the ER or call 911 if any headaches, dizziness, shortness of breath, chest pain, abdominal pain, bleeding, fevers, or worsening of medical condition. Patient was counseled about treatment plan, medications, possible side effects, patientverbalized understanding. All questions were answered to the best of my ability. This discharge took greater then 30 minutes in planning, reviewing documentation, counseling the patient, and discussing with other team members." ASSESSMENT ASSESSMENT Assessment Date of Service: Mar 06, 2025 Billing Provider: ROLLY BERMUDEZ MD Common Visit Codes: 29827-JNV/OBS DISCH DAY >30min TL CAMPBELL RESIDENT Mar 06, 2025 10:29 ROLLY BERMUDEZ MD Mar 14, 2025 22:02
[2025-03-06] MEDS: SODIUM CHLORIDE 0.9% 1,000 ML IV ONE (11:14)
[2025-03-06] MEDS: POTASSIUM CHL 20 Meq TABLET PO ONE (11:14)
[2025-03-06 13:00] VITALS: BP 138/75; PULSE 66; RESP 18; TEMP 98.1; O2SAT 95
--- NOTE | 2025-03-06 13:06 | DVHDSRES ---
Discharge Summary Date of Admission Resident Creating Document: TL CAMPBELL RESIDENT Feb 25, 2025 at 21:39 Labs/Diagnostic Data: Laboratory Results Test 03/06/25 07:02 03/01/25 10:55 03/01/25 05:05 02/28/25 05:32 White Blood Count 4.8 10^3/uL (4.4-10.8) Red Blood Count 3.27 10^6/uL (4.5-5.90) Hemoglobin 11.5 g/dL (13.5-17.5) Hematocrit 32.0 % (41.0-53.0) Mean Corpuscular Volume 97.8 fL (80.0-100.0) Mean Corpuscular Hemoglobin 35.0 pg (28.0-32.0) Mean Corpuscular Hemoglobin Concent 35.8 g/dL (32.0-36.0) Red Cell Distribution Width 15.2 % (11.8-14.3) Platelet Count 275 10^3/uL (140-450) Mean Platelet Volume 8.8 fL (6.9-10.8) Neutrophils (%) (Auto) 63.6 % (37.0-80.0) Lymphocytes (%) (Auto) 21.6 % (10.0-50.0) Monocytes (%) (Auto) 12.3 % (0.0-12.0) Eosinophils (%) (Auto) 2.2 % (0.0-7.0) Basophils (%) (Auto) 0.3 % (0.0-2.0) Neutrophils # (Auto) 3.1 10 ^3/uL (1.6-8.6) Lymphocytes # (Auto) 1.0 10 ^3/uL (0.4-5.4) Monocytes # (Auto) 0.6 10 ^3/uL (0-1.3) Eosinophils # (Auto) 0.1 10 ^3/uL (0-0.8) Basophils # (Auto) 0 10 ^3/uL (0-0.2) Nucleated Red Blood Cells 0.1 % Sodium Level 145 mmol/L (136-145) Potassium Level 3.2 mmol/L (3.5-5.1) Chloride Level 106 mmol/L (98-107) Carbon Dioxide Level 28 mmol/L (20-31) Anion Gap 11 (5-15) Blood Urea Nitrogen 11 mg/dL (9-23) Creatinine 1.82 mg/dL (0.700-1.30) Glomerular Filtration Rate Calc 41 mL/min (>90) BUN/Creatinine Ratio 6.0 (10.0-20.0) Serum Glucose 105 mg/dL (74-106) Calcium Level 8.2 mg/dL (8.7-10.4) Magnesium Level 1.7 mg/dL (1.6-2.6) Total Bilirubin 0.7 mg/dL (0.2-1.0) Aspartate Amino Transferase (AST) 51 U/L (13-40) Alanine Aminotransferase (ALT) 81 U/L (7-40) Alkaline Phosphatase 60 U/L (46-116) Total Protein 5.5 g/dL (5.7-8.2) Albumin 3.2 g/dL (3.2-4.8) Urine Color Light-yellow (Yellow) Urine Clarity Clear (Clear) Urine pH 5.5 (5.0-9.0) Urine Specific [place] 1.005 (1.001-1.035) Urine Protein Negative (Negative) Urine Ketones Negative (Negative) Urine Blood Trace /uL (Negative) Urine Nitrite Negative (Negative) Urine Bilirubin Negative (Negative) Urine Urobilinogen Normal mg/dL (Negative) Urine Leukocyte Esterase Negative /uL (Negative) Urine RBC <1 /hpf (0 - 3) Urine Microscopic WBC 1 /HPF (0-3) Urine Squamous Epithelial Cells None seen /hpf (<5) Urine Bacteria None seen /hpf (None Seen) Urine Osmolality 166 mOsm/kg Urine Creatinine 36.78 mg/dL (30.0-125.0) Urine Protein/Creatinine Ratio 0.17 Urine Sodium 22 mmol/L (40-220) Urine Potassium 6 mmol/L (12-62) Urine Glucose Normal mg/dL (Normal) Urine Total Protein < 6.0 mg/dL (1-14) Differential Total Cells Counted 100.0 (100) Neutrophils % (Manual) 56 (37.0-80.0) Band Neutrophils % (Manual) 3 Lymphocytes % (Manual) 23 (10.0-50.0) Monocytes % (Manual) 18 (0-12) Eosinophils % (Manual) 0 (0-7) Basophils % (Manual) 0 (0.0-2.0) Metamyelocytes % (manual) 0 Myelocytes % (Manual) 0 Promyelocytes % (Manual) 0 Blast Cells % (Manual) 0 Reactive Lymphocytes 0 Platelet Estimate Decreased Anisocytosis (manual) Slight Macrocytosis Slight Lactate Dehydrogenase 259 U/L (120-246) Free Thyroxine (T4) Calculated 1.25 ng/dL (0.89-1.76) Total Triiodothyronine (TT3) 0.91 ng/mL (0.60-1.81) Phosphorus Level 3.2 mg/dL (2.4-5.1) Test 02/27/25 10:09 02/26/25 23:30 02/26/25 07:27 02/26/25 06:21 Triglycerides Level 193 mg/dL (< 150) Cholesterol Level 113 mg/dL (< 200) LDL Cholesterol 55 mg/dL (< 100) HDL Cholesterol 24 mg/dL (40-59) Vitamin B12 Level 71 pg/mL (211-911) Vitamin D 25-Hydroxy 11.8 ng/mL (30.0-100) Folic Acid 19.89 ng/mL (>5.38) Random Vancomycin Level 9.8 ug/mL (5-10) Stool for White Cells None seen Lactic Acid Level 1.7 mmol/L (0.4-2.0) Hemoglobin A1c 5.8 % A1C (<5.7) Thyroid Stimulating Hormone (TSH) 0.53 uIU/mL (0.55-4.78) Test 02/25/25 23:40 02/25/25 19:14 02/25/25 16:48 02/25/25 13:32 Stool Occult Blood Positive (Negative) Stool Occult Blood Sample #3 (Negative) Direct Bilirubin 0.2 mg/dL (<0.3) Urine Amorphous Crystals Mod /hpf (None Seen) SARS-CoV-2 Antigen (Rapid) Negative (NEGATIVE) Test 02/25/25 12:03 Troponin I High Sensitivity 5 ng/L (</=54) Other Laboratory Tests 03/06/25 07:02 Brief Hx & Hospital Course: Todd Day is a 64-year-old male with a known medical history of hypertension and hepatic hemangioma who presented with complaints of persistent nausea, repeated episodes of vomiting, diarrhea, headache, and generalized weakness that have persisted over the past three days. He reports experiencing . These symptoms are accompanied by fever and shortness of breath. Patient had colonoscopy week ago and came to [facility] 3 days ago. Since came to [facility] she had loose stool associated with abdominal pain. Spoke to daughter (Avani), his father went to restroom every 1-2 hour for last 2 days. Patient also fever for same duration. 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 #Neutropenia # Transaminitis #WILMER due to dehydration # Macrocytic anemia due to vitamin B12 deficiency # Essential hypertension #Thrombocytopenia # Vitamin-D deficiency # Pre-diabetes # Asymptomatic Hyperthyroidism # Hypokalemia # Lactic acidosis #History of Hepatic hemangioma # History of recent colonoscopy #Thrombocytopenia # Obesity, BMI 30.1 Discharge Disposition: Home Discharge Instruct/Medications Diet: Consistent carbohydrate, Cardiac 2g Na,low cholest Follow Up/Referral: Please follow up with the primary care physician in 1-2 weeks Please drink plenty of water to maintain well hydration, avoid dehydration Scheduled Amlodipine Besylate (Norvasc Tablet), 1 TAB PO DAILY Ampicillin (Ampicillin), 500 MG PO QID Ergocalciferol (Vitamin D 23762 Unit), 50,000 UNIT PO QWEEKLY Famotidine (Famotidine), 20 MG PO DAILY Metoprolol Tartrate (Metoprolol Tartrate), 1 TAB PO BID Discharge Statement: "Patient was advised to return to the ER or call 911 if any headaches, dizziness, shortness of breath, chest pain, abdominal pain, bleeding, fevers, or worsening of medical condition. Patient was counseled about treatment plan, medications, possible side effects, patientverbalized understanding. All questions were answered to the best of my ability. This discharge took greater then 30 minutes in planning, reviewing documentation, counseling the patient, and discussing with other team members." ASSESSMENT ASSESSMENT Assessment #acute gastroenteritis likely due to salmonella infection# Typhoid fever # Sepsis due to colitis#Gastroenteritis likely viral or bacterial#Traveler's diarrhea# questionable hemolytic uremic syndrome#Neutropenia# Transaminitis#WILMER due to dehydration# Macrocytic anemia due to vitamin B12 deficiency# Essential hypertension#Thrombocytopenia# Vitamin-D deficiency# Pre-diabetes# Asymptomatic Hyperthyroidism# Hypokalemia# Lactic acidosis#History of Hepatic hemangioma# History of recent colonoscopy#Thrombocytopenia# Obesity, BMI 30.1 TL CAMPBELL RESIDENT Mar 06, 2025 13:06
[2025-03-06] MEDS ORDERED: AML5T PO (13:10)
[2025-03-06] MEDS ORDERED: AMPI500C9 PO (13:10)
[2025-03-06] MEDS ORDERED: METO25TA5 PO (13:10)
[2025-03-06] MEDS ORDERED: FAMO-12 PO (13:10)
[2025-03-06] MEDS ORDERED: ERGO1CAP23 PO (13:12)
[2025-03-06 14:47] VITALS: BP 141/81; PULSE 61; RESP 17; TEMP 98.3; O2SAT 95
== END 2025-03-06 16:38 | disposition home or self-care (01) | DRG 871 ==
LOC: EDUNIT# 10:44 → ER 10:44 → OVERFLOW 21:39 → TELE-CENTR 02-27 03:06 → TELE-WESTW 03-03 10:20
PROVIDERS: ADMIT Student in an Organized Health Care Education/Training Program; ATTEND Student in an Organized Health Care Education/Training Program
DX: A02.1 Salmonella sepsis (principal); D59.30 Hemolytic-uremic syndrome, unspecified; N17.0 Acute kidney failure with tubular necrosis; A01.00 Typhoid fever, unspecified; E87.0 Hyperosmolality and hypernatremia; D70.9 Neutropenia, unspecified; E87.20 Acidosis, unspecified; D69.6 Thrombocytopenia, unspecified; A02.0 Salmonella enteritis; I10 Essential (primary) hypertension; E66.9 Obesity, unspecified; E05.90 Thyrotoxicosis, unspecified without thyrotoxic crisis or storm; D53.9 Nutritional anemia, unspecified; E86.0 Dehydration; Z20.822 Contact with and (suspected) exposure to COVID-19; E87.6 Hypokalemia; E55.9 Vitamin D deficiency, unspecified; E53.8 Deficiency of other specified B group vitamins; A08.4 Viral intestinal infection, unspecified; R73.03 Prediabetes; R74.01 Elevation of levels of liver transaminase levels; Z68.30 Body mass index [BMI] 30.0-30.9, adult
CPT/HCPCS: 36415; 71045; 74176; 76775; 80048; 80053; 80061; 80076; 80202; 81001; 81015; 82270; 82306; 82570; 82607; 82746; 83036; 83605; 83615; 83735; 83935; 84100; 84133; 84156; 84300; 84439; 84443; 84480; 84484; 85007; 85025; 85027; 85048; 87040; 87045; 87081; 87426; 87427; 87493; 96365; G0378; J2543; J3480; J3490